=== PATIENT | female | born 1935 | race Caucasian/White ===

== ENCOUNTER → 2016-08-06 | Outpatient (CLI) | payer MEDICARE ==
[~2016-08-06] MED LIST: ARMO30TA PO; DILT180C56 PO; FLEC100T PO; VALT1TAB PO; XARE20TA PO
--- NOTE | 2016-09-03 10:56 | RSPPFT ---
DATE OF PROCEDURE: 08/06/16 COMMENTS: Spirometry with FEV1 of 1.7 at 117% of predicted, FVC of 2.1 at 93%, FEF 25-75 at 101% of predicted. Post-bronchodilator study demonstrated improvements in the FEV1 and FEF 25-75. Lung volumes demonstrated a raised RV/TLC ratio indicating hyperinflation and air trapping. Diffusion capacity is normal. Flow volume loops appear unremarkable. IMPRESSION: 1. Essentially normal pulmonary function study. 2. Significant response to use of bronchodilator indicating reactive airways. 3. Normal diffusion capacity.
== END ==
LOC: HRSP 10:40
DX: R05 Cough (principal); R06.00 Dyspnea, unspecified; R06.2 Wheezing; I48.91 Unspecified atrial fibrillation
CPT/HCPCS: 71250; 94060; 94726; 94729

== ENCOUNTER → 2016-08-06 | Outpatient (CLI) | payer MEDICARE ==
--- NOTE | 2016-08-06 14:14 | RADRPT ---
EXAM DATE/TIME: 08/06/2016 13:50 [facility] COMPARISON: No previous studies available for comparison. INDICATIONS : Coughing. RADIATION DOSE: 5.22 CTDIvol (mGy) MEDICAL HISTORY : A-fib SURGICAL HISTORY : Ablation. ENCOUNTER: Initial ACUITY: 1 day PAIN SCALE: 3/10 LOCATION: chest TECHNIQUE: Volumetric scanning of the chest was performed. Using automated exposure control and adjustment of t he mA and/or kV according to patient size, radiation dose was kept as low as reasonably achievable to obtain optimal diagnostic quality images. FINDINGS: LUNGS: There is no consolidation or pneumothorax. No concerning pulmonary nodule is visualized. No acute pu lmonary infiltrates. PLEURAE: There is no pleural thickening or pleural effusion. MEDIASTINUM: The heart and great vessels demonstrate no acute abnormality. There is no mediastinal or hilar lymph adenopathy. Atherosclerotic changes in the aorta. Coronary calcifications. AXILLAE: Within normal limits. No lymphadenopathy. MUSCULOSKELETAL: Within normal limits for patient age. MISCELLANEOUS: The visualized upper abdominal organs demonstrate no acute abnormality. Bilateral breast implants are in place. CONCLUSION: No acute intrathoracic disease. Kanu Sandoval MD on August 06, 2016 at 14:11 Board Certified Radiologist. This report was verified electronically.
== END ==
LOC: HRAD 13:03
DX: R05 Cough (principal); R06.00 Dyspnea, unspecified; R06.2 Wheezing; I48.91 Unspecified atrial fibrillation
CPT/HCPCS: 71250

== ENCOUNTER 2016-08-17 16:18 | Day surgery (SDC) | payer MEDICARE ==
[~2016-08-17 16:18] MED LIST changes: -ARMO30TA PO; -DILT180C56 PO; -FLEC100T PO; +PROPOFOL 200 MG/20 ML AMP IV ONE; -VALT1TAB PO; -XARE20TA PO
[2016-08-17] MEDS ORDERED: SODIUM CHLORID 0.9% 500 ML IV SCH (16:45)
[2016-08-17] MEDS ORDERED: METOPROLOL TARTRATE 25 MG TAB PO PRN (16:45)
[2016-08-17] MEDS ORDERED: INSULIN HUMAN REGULAR 1,000 UNITS/10 ML VIAL SQ PRN (16:45)
[2016-08-17] MEDS ORDERED: LACTATED RINGER'S 1000 ML IV SCH (16:45)
[2016-08-17] MEDS ORDERED: MIDAZOLAM HCL 2 MG/2 ML VIAL ONE (17:47)
[2016-08-17] MEDS ORDERED: ARMO30TA PO (17:57)
[2016-08-17] MEDS ORDERED: FLEC100T PO (17:57)
[2016-08-17] MEDS ORDERED: DILT180C56 PO (17:57)
[2016-08-17] MEDS ORDERED: XARE20TA PO (17:57)
[2016-08-17] MEDS ORDERED: VALT1TAB PO (17:57)
--- NOTE | 2016-08-17 19:43 | MA ---
cc: ALYSSA FREY M.D., HANSCY M.D. DATE 08/17/2016 CARDIOVERSION Mrs. Pierre is an 80-year-old female, atrial fibrillation, previous ablation, left atrial tachycardia on flecainide. Heart rate still high for the past week or two, admitted for cardioversion. The risks, the nature and the benefit of the procedure are clearly stated to her and her . Risks include cardiac arrest, need for pacing support and even . The patient understood and agreed to proceed. PROCEDURE After written informed consent was obtained, the patient was brought to the where the patient was evaluated by anesthesiologist. Anterolateral pads were placed. The patient received a 200 sync biphasic joule that converted her into sinus rhythm. She was observed. Heart rate in the 90s-80s. No incident to report. The patient tolerated the procedure. CONCLUSION Successful cardioversion. COMMENT AND RECOMMENDATIONS The patient going to be discharged home. Will be observed. I will see the patient in my office in two weeks. Serge Engle MD HS/KK /6:00 PM /7:35 PM
--- NOTE | 2016-08-18 18:41 | EKG ---
Date Performed: 08/17/2016 Time Performed: 17:49:56 PTAGE: 80 years EKG: Sinus rhythm Poor R wave progression - probable normal variant Borderline ECG PREVIOUS TRACING : 08/17/2016 16.58 DOCTOR: Jaydon Bills Interpretating Date/Time 08/18/2016 18:38:17
--- NOTE | 2016-08-18 18:43 | EKG ---
Date Performed: 08/17/2016 Time Performed: 16:58:02 PTAGE: 80 years EKG: Atrial flutter Poor R wave progression - probable normal variant Abnormal ECG NO PREVIOUS TRACING DOCTOR: Jaydon Bills Interpretating Date/Time 08/18/2016 18:38:45
== END 2016-08-17 18:36 | disposition home or self-care (01) ==
LOC: HDOC 16:18 → HDIC 16:19 → HDOC 18:36
PROVIDERS: ATTEND Internal Medicine Interventional Cardiology
DX: I48.91 Unspecified atrial fibrillation (principal); R94.31 Abnormal electrocardiogram [ECG] [EKG]
CPT/HCPCS: 92960; 93005; J2250

== ENCOUNTER 2017-07-13 14:50 | Inpatient (IN) | payer MEDICARE ==
[2017-07-13] VITALS (12 sets, daily range): BP systolic 137–196; BP diastolic 82–113; PULSE 91–141; RESP 15–20; TEMP 97.8–98.5; O2SAT 97–99
[~2017-07-13] VITALS: Ht 154.9 cm; Wt 56.5 kg
[~2017-07-13 14:50] MED LIST changes: +ARMO30TA PO; +BACT800T5 PO; +DILT180C56 PO; +FLEC100T PO; -PROPOFOL 200 MG/20 ML AMP IV ONE; +VALT1TAB PO; +XARE20TA PO
[2017-07-13] MEDS ORDERED: DILTIAZEM INJ 125 MG in SODIUM CHLORIDE 0.9% INJ 100 ML IV PRN ×3 (15:45→19:00)
[2017-07-13] MEDS ORDERED: DILTIAZEM HCL 25 MG/5 ML VIAL IV PUSH ONE (15:45)
[2017-07-13] MEDS ORDERED: SODIUM CHLORIDE 0.9% FLUSH 10 ML FLUSH IVF PRN (15:45)
[2017-07-13] MEDS: DILTIAZEM DRIP INJ PREMIX 125 ML IV PRN ×2 (16:33→17:40)
--- NOTE | 2017-07-13 16:38 | RADRPT ---
EXAM DATE/TIME: 07/13/2017 15:44 [facility] COMPARISON: No previous studies available for comparison. INDICATIONS : Cardiac issues MEDICAL HISTORY : atrial fibrillation SURGICAL HISTORY : ablasion, cardiac conversion x 2 ENCOUNTER: Initial ACUITY: 1 day PAIN SCORE: 0/10 LOCATION: Bilateral cranial FINDINGS: A single view of the chest demonstrates the lungs to be symmetrically aerated without evidence of mas s, infiltrate or effusion. The cardiomediastinal contours are unremarkable for portable technique. Osseous structures are intact. CONCLUSION: 1. No acute cardiopulmonary disease. Jameel Pedroza MD on July 13, 2017 at 16:35 Board Certified Radiologist. This report was verified electronically.
[2017-07-13 16:59] LABS: AUTOMATED NEUTROPHIL # 4.4 TH/MM3 (1.8-7.7); BASOPHIL % 0.7 % (0.0-2.0); EOSINOPHIL # 0.1 TH/MM3 (0-0.4); EOSINOPHIL % 1.3 % (0.0-4.0); HEMATOCRIT 41.8 % (35.0-46.0); HEMOGLOBIN 14.5 GM/DL (11.6-15.3); LYMPH % 26.1 % (9.0-44.0); LYMPHOCYTE # 1.8 TH/MM3 (1.0-4.8); MEAN CELL VOLUME 91.4 FL (80.0-100.0); MEAN CORPUSCULAR HEMOGLOBIN 31.7 PG (27.0-34.0); MEAN CORPUSCULAR HGB CONC 34.6 % (32.0-36.0); MEAN PLATELET VOLUME 9.5 FL (7.0-11.0); MONO % 9.7 % (0.0-8.0); MONOCYTE # 0.7 TH/MM3 (0-0.9); NEUT % 62.2 % (16.0-70.0); PLATELET COUNT 215 TH/MM3 (150-450); RED BLOOD COUNT 4.57 MIL/MM3 (4.00-5.30); RED CELL DISTRIBUTION WIDTH 14.2 % (11.6-17.2); WHITE BLOOD COUNT 7.1 TH/MM3 (4.0-11.0)
[2017-07-13 17:08] LABS: PROTHROMBIN TIME - PATIENT 10.2 SEC (9.8-11.6)
[2017-07-13 17:18] LABS: BICARBONATE 25.4 MEQ/L (21.0-32.0); BLOOD UREA NITROGEN 13 MG/DL (7-18); CALCIUM 9.7 MG/DL (8.5-10.1); CHLORIDE 103 MEQ/L (98-107); CREATININE 0.76 MG/DL (0.50-1.00); GLOMERULAR FILTRATION RATE 73 ML/MIN (>89); GLUCOSE,RANDOM 82 MG/DL (74-106); MAGNESIUM 2.3 MG/DL (1.5-2.5); SODIUM (NA) 137 MEQ/L (136-145); TROPONIN I LESS THAN 0.02 NG/ML (0.02-0.05)
--- NOTE | 2017-07-13 17:20 | EKG ---
Date Performed: 07/13/2017 Time Performed: 15:15:58 PTAGE: 81 years EKG: ATRIAL FLUTTER/TACHYCARDIA WITH RAPID VENTRICULAR RESPONSE MINIMAL ST DEPRESSION ABNORMAL R HYTHM ECG Compared to prior electrocardiogram, atrial flutter is now present PREVIOUS TRACING : 08/17/2016 17.49 DOCTOR: Marc Taylor Interpretating Date/Time 07/13/2017 17:18:53
--- NOTE | 2017-07-13 17:35 | PD ---
HPI Chief Complaint: Abnormal Results Time Seen by Provider: 15:20 Travel History International Travel<30 days: No Contact w/Intl Traveler<30days: No Traveled to known affect area: No History of Present Illness HPI 81-year-old female came to the emergency room with history of palpitations, lightheadedness since yesterday at around 5 PM. Patient has history of A. fib. She realizes that it is her atrial fibrillation. 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 Engle who has done cardiac ablation for her in the past. He did an EKG in his office that showed A. fib with RVR. He has asked the patient come to the emergency room and he will try to do an ablation again. Patient denies any chest pain. Her heart rate was in 120s when she arrived. She was awake and answering questions appropriately. Blood pressure was stable. Patient is on Xarelto for blood thinner. She is also on flecainide at home. She drinks 2 glasses of wine every day and drank one last night as well. PFSH Past Medical History Narrative Medical List of her past medical, surgical, social and family history is reviewed from the nursing note. Atrial Fibrillation: Yes Diminished Hearing: No Hypertension: Yes Thyroid Disease: Yes ?: Not Past Surgical History Section: Yes (x3) Cholecystectomy: Yes Other Surgery: Yes (ablasion, BREAST IMPLANTS) Social History Alcohol Use: Yes (wine daily ) Tobacco Use: No Substance Use: No Allergies-Medications (Allergen,Severity, Reaction): Coded Allergies: acetaminophen (Verified Allergy, Unknown, 07/16/17) albuterol (Verified Allergy, Unknown, 07/16/17) oxycodone (Verified Allergy, Unknown, 07/16/17) Comments List of her allergies reviewed from the nursing note. Reported Meds & Prescriptions Reported Meds & Active Scripts Active Reported Valtrex (Valacyclovir HCl) 1 Gm Tab 1,000 Mg PO DAILY Thomson Thyroid (Thyroid) 30 Mg Tab 45 Mg PO DAILY Xarelto (Rivaroxaban) 20 Mg Tab 20 Mg PO DAILY Diltiazem CD 24 HR 180 Mg Caper 180 Mg PO DAILY Narrative Medication List of her home medications reviewed from the nursing note. Review of Systems Except as stated in HPI: all other systems reviewed are Neg Cardiovascular: Positive: Palpitations Physical Exam Narrative GENERAL: Awake, alert, anxious SKIN: Focused skin assessment warm/dry. HEAD: Atraumatic. Normocephalic. EYES: Pupils equal and round. No scleral icterus. No injection or drainage. ENT: No nasal bleeding or discharge. Mucous membranes pink and moist. NECK: Trachea midline. No JVD. CARDIOVASCULAR: Irregularly irregular rhythm, tachycardic. No murmur appreciated. RESPIRATORY: No accessory muscle use. Clear to auscultation. Breath sounds equal bilaterally. GASTROINTESTINAL: Abdomen soft, non-tender, nondistended. Hepatic and splenic margins not palpable. MUSCULOSKELETAL: No obvious deformities. No clubbing. No cyanosis. No edema. NEUROLOGICAL: Awake and alert. No obvious cranial nerve deficits. Motor grossly within normal limits. Normal speech. PSYCHIATRIC: Appropriate mood and affect; insight and judgment normal. Data Data Last Documented VS Orders Orders Electrocardiogram (07/13/17 ) Basic Metabolic Panel (Bmp) (07/13/17 15:31) Ckmb (Isoenzyme) Profile (07/13/17 15:31) Complete Blood Count With Diff (07/13/17 15:31) Magnesium (Mg) (07/13/17 15:31) Prothrombin Time / Inr (Pt) (07/13/17 15:31) Troponin I (07/13/17 15:31) Chest, Single Ap (07/13/17 15:31) Ecg Monitoring (07/13/17 15:31) Bilateral Bp Monitoring (07/13/17 15:31) Iv Access Insert/Monitor (07/13/17 15:31) Oximetry (07/13/17 15:31) Oxygen Administration (07/13/17 15:31) Sodium Chloride 0.9% Flush (Ns Flush) (07/13/17 15:45) Vital Signs (Adult) Q15MX4,Q4H (07/13/17 15:33) [employer] / Telemetry LISA.Q8H (07/13/17 15:33) Cardiac Rhythm LISA.Q8H (07/13/17 15:33) Notify Dr: Other (07/13/17 15:33) Diltiazem Inj (Cardizem Inj) (07/13/17 15:45) Diltiazem Inj (Cardizem Inj) (07/13/17 15:45) Diltiazem Drip Inj Premix (Cardizem Drip (07/13/17 15:45) Admit Order (Ed Use Only) (07/13/17 17:35) Labs Laboratory Tests Test 07/13/17 15:15 White Blood Count 7.1 TH/MM3 Red Blood Count 4.57 MIL/MM3 Hemoglobin 14.5 GM/DL Hematocrit 41.8 % Mean Corpuscular Volume 91.4 FL Mean Corpuscular Hemoglobin 31.7 PG Mean Corpuscular Hemoglobin Concent 34.6 % Red Cell Distribution Width 14.2 % Platelet Count 215 TH/MM3 Mean Platelet Volume 9.5 FL Neutrophils (%) (Auto) 62.2 % Lymphocytes (%) (Auto) 26.1 % Monocytes (%) (Auto) 9.7 % Eosinophils (%) (Auto) 1.3 % Basophils (%) (Auto) 0.7 % Neutrophils # (Auto) 4.4 TH/MM3 Lymphocytes # (Auto) 1.8 TH/MM3 Monocytes # (Auto) 0.7 TH/MM3 Eosinophils # (Auto) 0.1 TH/MM3 Basophils # (Auto) 0.0 TH/MM3 CBC Comment DIFF FINAL Differential Comment Prothrombin Time 10.2 SEC Prothromb Time International Ratio 1.0 RATIO Blood Urea Nitrogen 13 MG/DL Creatinine 0.76 MG/DL Random Glucose 82 MG/DL Calcium Level 9.7 MG/DL Magnesium Level 2.3 MG/DL Sodium Level 137 MEQ/L Potassium Level 3.8 MEQ/L Chloride Level 103 MEQ/L Carbon Dioxide Level 25.4 MEQ/L Anion Gap 9 MEQ/L Estimat Glomerular Filtration Rate 73 ML/MIN Total Creatine Kinase 93 U/L Troponin I LESS THAN 0.02 NG/ML MDM Medical Decision Making Medical Screen Exam Complete: Yes Emergency Medical Condition: Yes Medical Record Reviewed: Yes Interpretation(s) Twelve-lead EKG was reviewed by me. Atrial fibrillation, normal axis, RVR. Heart rate of 123 bpm. Differential Diagnosis A. fib with RVR, ACS, CHF Narrative Course 5:33 PM patient was given a bolus of Cardizem and started on Cardizem drip. Blood test results back and within normal limits. I discussed with Dr. Engle once the patient to be admitted medically and he will do the ablation probably tomorrow. Currently that her heart rate is between 90s-1 teens. The Cardizem drip will be titrated up a little. Critical Care Narrative Aggregate critical care time was 45 minutes. Time to perform other separately billable procedures was not included in the critical care time. My time did not include minutes spent treating any other patients simultaneously or on activities that did not directly contribute to the patient's treatment. The services I provided to this patient were to treat and/or prevent clinically significant deterioration that could result in: A. fib with RVR, Cardizem bolus and drip I provided critical care services requiring my management, as noted below: Chart data review, documentation time, medication orders and management, vital sign assessments/reviewing monitor data, ordering and reviewing lab tests, ordering and interpreting/reviewing x-rays and diagnostic studies, care of the patient and discussion of the patient with the admitting physicians. Procedures EKG Prior to Arrival: No Physician Communication Physician Communication Dr. Engle Diagnosis Primary Impression: Atrial fibrillation with RVR Admitting Information Admitting Physician Requests: Admit Scripts Amiodarone (Amiodarone) 200 Mg Tab 200 MG PO DAILY, #30 TAB Prov: Pete Davenport MD R1 07/16/17 Aj Cavazos MD Jul 13, 2017 17:35
--- NOTE | 2017-07-13 17:39 | HHI.HP ---
[facility] Service Family Medicine Primary Care Physician Sam Love MD Admission Diagnosis A. fib with RVR Diagnoses: International Travel<30 Days: No Contact w/Intl Traveler<30days: No Known Affected Area: No History of Present Illness 81 y/o F, pmhx of Afibb and ablation 1 year ago, presents after palpitations started yesterday afternoon. Her palpitations have been the worst in the last 24hours, but she started experiencing symptoms a month ago. She can feel her heart beating fast like it is beating out of her chest, nonstop for the last 24hours. Before yesterday, the palpitations would occur approximately 1x/day for 1.5hrs when she laid down to rest either in the afternoon or evening. She also felt excessively fatigued; she has been laying down frequently during the day and has had a lack of energy. She takes her HR with a cuff (and with an shelton on her iphone) when she feels the sx and she has been in the 130s at home. Pt denies any CP. She does feel some SOB but attributes this to activity. Denies any recent sickness; cold or flu. She has been vaccinated. Denies any N/V. Denies any diarrhea, she has had constipation recently but +BM this week. New Years Maryam, 30 days ago she went to the [facility] ED for constant palpitations x 24hrs and HR 130s and had a cardioversion (medication failed, and paddles used ) and told her to f/u with . The following month she continued to have sx.This felt similar to her episode 1 year ago that led to an ablation. She has had 4 episodes of palpitations since her last ablation, but these episodes of tachy would go away in 30 minutes. 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 said to come straight here and the plan is for ablation tomorrow. Review of Systems Constitutional: DENIES: Fever, Chills Endocrine: DENIES: Polydipsia, Polyuria Eyes: DENIES: Eye inflammation, Eye pain Ears, nose, mouth, throat: DENIES: Hearing loss, Vertigo Respiratory: DENIES: Hemoptysis, Sputum production Cardiovascular: DENIES: Lower Extremity Edema Gastrointestinal: DENIES: Black stools, Bloody stools Genitourinary: DENIES: Sexual dysfunction, Urinary frequency Musculoskeletal: DENIES: Muscle aches Integumentary: DENIES: Rash Hematologic/lymphatic: DENIES: Lymphadenopathy Immunologic/allergic: DENIES: Urticaria Neurologic: DENIES: Paresthesias Psychiatric: DENIES: Depression Past Family Social History Past Medical History Afibb with RVR, Ablation 1 year ago HTN Borderline DM Past Surgical History cornea transplant C/S x 3 Cholecystectomy Wrist and ankle repairs Reported Medications Cardizem 240mg ER Flec 100mg Xarelto 20mg Allergies: Coded Allergies: acetaminophen (Verified Allergy, Unknown, 07/13/17) albuterol (Verified Allergy, Unknown, 07/13/17) oxycodone (Verified Allergy, Unknown, 07/13/17) Family History Father: of heart disease at 58 Mother: of heart disease at 65 Social History live in home together, live in [facility] does not smoke, drink wine (2 glasses last night), no drugs Physical Exam Vital Signs Vital Signs Date Time Temp Pulse Resp B/P (MAP) Pulse Ox O2 Delivery O2 Flow Rate FiO2 07/13/17 17:31 98 15 160/84 (109) 99 Room Air 07/13/17 17:13 99 Room Air 07/13/17 17:13 99 15 146/87 (106) 98 Room Air 139/86 (103) 07/13/17 17:13 99 15 146/87 (106) 99 Room Air 07/13/17 16:33 101 146/87 07/13/17 15:18 141 17 139/82 (101) 99 Room Air 07/13/17 14:51 98.5 130 20 177/108 (131) 99 Room Air Physical Exam GENERAL: This is a well-nourished, well-developed patient, in no apparent distress. SKIN: No rashes, ecchymoses or lesions. Cool and dry. HEAD: Atraumatic. Normocephalic. No temporal or scalp tenderness. EYES: Pupils equal round and reactive. Extraocular motions intact. No scleral icterus. No injection or drainage. ENT: Nose without bleeding, purulent drainage or septal hematoma. Throat without erythema, tonsillar hypertrophy or exudate. Uvula midline. Airway patent. NECK: Trachea midline. No JVD or lymphadenopathy. Supple, nontender, no meningeal signs. CARDIOVASCULAR: Regular rate and rhythm without murmurs, gallops, or rubs. RESPIRATORY: Clear to auscultation. Breath sounds equal bilaterally. No wheezes , rales, or rhonchi. GASTROINTESTINAL: Abdomen soft, non-tender, nondistended. No hepato-splenomegaly , or palpable masses. No guarding. MUSCULOSKELETAL: Extremities without clubbing, cyanosis, or edema. No joint tenderness, effusion, or edema noted. No calf tenderness. Negative Homans sign bilaterally. NEUROLOGICAL: Awake and alert. Cranial nerves II through XII intact. Motor and sensory grossly within normal limits. Five out of 5 muscle strength in all muscle groups. Normal speech. Laboratory Laboratory Tests Test 07/13/17 15:15 White Blood Count 7.1 Red Blood Count 4.57 Hemoglobin 14.5 Hematocrit 41.8 Mean Corpuscular Volume 91.4 Mean Corpuscular Hemoglobin 31.7 Mean Corpuscular Hemoglobin Concent 34.6 Red Cell Distribution Width 14.2 Platelet Count 215 Mean Platelet Volume 9.5 Neutrophils (%) (Auto) 62.2 Lymphocytes (%) (Auto) 26.1 Monocytes (%) (Auto) 9.7 Eosinophils (%) (Auto) 1.3 Basophils (%) (Auto) 0.7 Neutrophils # (Auto) 4.4 Lymphocytes # (Auto) 1.8 Monocytes # (Auto) 0.7 Eosinophils # (Auto) 0.1 Basophils # (Auto) 0.0 CBC Comment DIFF FINAL Differential Comment Prothrombin Time 10.2 Prothromb Time International Ratio 1.0 Blood Urea Nitrogen 13 Creatinine 0.76 Random Glucose 82 Calcium Level 9.7 Magnesium Level 2.3 Sodium Level 137 Potassium Level 3.8 Chloride Level 103 Carbon Dioxide Level 25.4 Anion Gap 9 Estimat Glomerular Filtration Rate 73 Total Creatine Kinase 93 Troponin I LESS THAN 0.02 Result Diagram: 07/13/17 1515 07/13/17 1515 Septic Shock Reassessment Septic shock perfusion: reassessment completed Caprini VTE Risk Assessment Caprini VTE Risk Assessment: No/Low Risk (score <= 1) Caprini Risk Assessment Model Point Value = 1 Point Value = 2 Point Value = 3 Point Value = 5 Age 41-60 Minor surgery BMI > 25 kg/m2 Swollen legs Varicose veins or History of unexplained or recurrent spontaneous Oral contraceptives or hormone replacement Sepsis (< 1 month) Serious lung disease, including pneumonia (< 1 month) Abnormal pulmonary function Acute myocardial infarction Congestive heart failure (< 1 month) History of inflammatory bowel disease Medical patient at bed rest Age 61-74 Arthroscopic surgery Major open surgery (> 45 min) Laparoscopic surgery (> 45 min) Malignancy Confined to bed (> 72 hours) Immobilizing plaster cast Central venous access Age >= 75 History of VTE Family history of VTE Factor V Leiden Prothrombin [id number] Lupus anticoagulant Anticardiolipin antibodies Elevated serum homocysteine Heparin-induced thrombocytopenia Other congenital or acquired thrombophilia Stroke (< 1 month) Elective arthroplasty Hip, pelvis, or leg fracture Acute spinal cord injury (< 1 month) Prophylaxis Regimen Total Risk Factor Score Risk Level Prophylaxis Regimen 0-1 Low Early ambulation 2 Moderate Order ONE of the following: *Sequential Compression Device (SCD) *Heparin 5000 units SQ BID 3-4 Higher Order ONE of the following medications: *Heparin 5000 units SQ TID *Enoxaparin/Lovenox 40 mg SQ daily (WT < 150 kg, CrCl > 30 mL/min) *Enoxaparin/Lovenox 30 mg SQ daily (WT < 150 kg, CrCl > 10-29 mL/min) *Enoxaparin/Lovenox 30 mg SQ BID (WT < 150 kg, CrCl > 30 mL/min) AND/OR *Sequential Compression Device (SCD) 5 or more Highest Order ONE of the following medications: *Heparin 5000 units SQ TID (Preferred with Epidurals) *Enoxaparin/Lovenox 40 mg SQ daily (WT < 150 kg, CrCl > 30 mL/min) *Enoxaparin/Lovenox 30 mg SQ daily (WT < 150 kg, CrCl > 10-29 mL/min) *Enoxaparin/Lovenox 30 mg SQ BID (WT < 150 kg, CrCl > 30 mL/min) AND *Sequential Compression Device (SCD) Assessment and Plan Assessment and Plan 81-year-old female, history of chronic A. fib and previous ablation and cardioversions, presents with palpitations and tachycardia. Code Status Full code Discussed Condition With Dr. Padilla Problem List: (1) Atrial fibrillation with RVR ICD Codes: I48.91 - Unspecified atrial fibrillation Status: Acute Plan: Chronic A. fib 1 year, may be exacerbated by alcohol, thyroid, CHF, or other Rate control with diltiazem drip Telemetry CIC Follow-up troponins and EKGs Follow-up BMP Follow-up magnesium Follow-up echo Follow up TSH/free T4 Plan for ablation with Dr. Valenzuela tomorrow (2) Hypertension ICD Codes: I10 - Essential (primary) hypertension Status: Chronic Plan: Blood pressure is well-controlled at home per patient f/u BPs Rate control and blood pressure control with diltiazem drip, titrated as needed Caution for hypotension (3) Hypothyroidism ICD Codes: E03.9 - Hypothyroidism, unspecified Status: Acute Plan: Patient on [place] thyroid 45 mg daily at home Hold for now Follow up TSH, free T4 in a.m. (4) Prediabetes ICD Codes: R73.03 - Prediabetes Status: Chronic Plan: Follow-up fingersticks Low-dose sliding scale (5) FEN/PPX Status: Chronic Plan: Fluids: By mouth fluids until midnight Electrolytes: BMP within normal limits, follow-up tomorrow and replete as needed Nutrition: By mouth until midnight GI prophylaxis: Not indicated DVT prophylaxis: July Claire MD R2 Jul 13, 2017 17:39
[2017-07-13] MEDS ORDERED: SODIUM CHLORIDE 0.9% FLUSH 10 ML FLUSH IV FLUSH PRN (19:00)
[2017-07-13] MEDS ORDERED: DEXTROSE 50% IN WATER 50 ML VIAL(D50) IV PUSH PRN (19:15)
[2017-07-13] MEDS ORDERED: GLUCAGON 1 MG/ML VIAL OTHER PRN (19:15)
[2017-07-13] MEDS: SODIUM CHLORIDE 0.9% FLUSH 10 ML FLUSH IV FLUSH SCH (21:00)
[2017-07-13] MEDS: INSULIN ASPART SUPPLEMENTAL SCALE SQ SCH (21:00)
--- NOTE | 2017-07-13 21:44 | EKG ---
Date Performed: 07/13/2017 Time Performed: 21:14:02 PTAGE: 81 years EKG: atrial flutter Possible anterior infarct - age undetermined Inferior/lateral ST-T changes a re nonspecific Abnormal ECG Compared to prior electrocardiogram, rate has decreased PREVIOUS TRACING : 07/13/2017 15.15 DOCTOR: Marc Taylor Interpretating Date/Time 07/13/2017 21:43:09
[2017-07-13 21:45] LABS: MAGNESIUM 2.2 MG/DL (1.5-2.5)
[2017-07-13 21:53] LABS: FREE T4 1.02 NG/DL (0.76-1.46); TROPONIN I LESS THAN 0.02 NG/ML (0.02-0.05)
[2017-07-13] MEDS: TEMAZEPAM 15 MG CAP PO PRN (23:43)
[2017-07-14] VITALS (27 sets, daily range): BP systolic 104–144; BP diastolic 72–88; PULSE 84–131; RESP 18–20; TEMP 97.6–98.1; O2SAT 96–98
[2017-07-14 03:35] LABS: MEAN CELL VOLUME 92.1 FL (80.0-100.0); MEAN CORPUSCULAR HEMOGLOBIN 30.7 PG (27.0-34.0); MEAN CORPUSCULAR HGB CONC 33.4 % (32.0-36.0); MEAN PLATELET VOLUME 8.2 FL (7.0-11.0); PLATELET COUNT 218 TH/MM3 (150-450); RED BLOOD COUNT 4.56 MIL/MM3 (4.00-5.30); RED CELL DISTRIBUTION WIDTH 14.5 % (11.6-17.2); WHITE BLOOD COUNT 6.3 TH/MM3 (4.0-11.0)
[2017-07-14 03:55] LABS: BICARBONATE 27.9 MEQ/L (21.0-32.0); CALCIUM 8.6 MG/DL (8.5-10.1); CREATININE 0.74 MG/DL (0.50-1.00)
[2017-07-14] MEDS: DILTIAZEM DRIP INJ PREMIX 125 ML IV PRN (05:30)
--- NOTE | 2017-07-14 07:21 | HHI.FPPN ---
Subjective Remarks Khushbu Pierre is an 81yo lady with h/o chronic A fib s/p ablation one year ago, admitted for anticipated ablation by Dr. Engle after developing 1-2 day history of worsening palpitations. For further details, please see resident H&P. This morning, she reports she slept well overnight. She denies palpitations, SOB , or chest pain this morning, ROS: Chest pain resolved, palpitations resolved. No SOB, no nausea. All other systems reviewed as negative. PMH/PSxH/SocHx/FamHx: Per resident H&P. Significant for: A fib, s/p ablation 1 year ago and cardioversion ~1 month ago. HTN, DM II. H/O x 3, cornea transplant, cholecystectomy, wrist/ankle repair. Father and mother both of heart disease. Lives with partner locally. No tobacco. 2 glasses of wine/night. No recreational drugs. Objective Vitals Vital Signs Date Time Temp Pulse Resp B/P (MAP) Pulse Ox O2 Delivery O2 Flow Rate FiO2 07/14/17 06:00 94 07/14/17 05:30 88 07/14/17 05:00 84 07/14/17 04:00 92 07/14/17 03:00 90 07/14/17 03:00 97.8 101 130/88 (102) 98 07/14/17 02:00 90 07/14/17 01:00 96 07/14/17 00:00 100 07/13/17 23:00 98.1 97 152/82 (105) 97 07/13/17 23:00 102 07/13/17 22:00 94 07/13/17 21:00 96 07/13/17 20:00 114 07/13/17 19:09 91 07/13/17 19:00 97.8 96 137/87 (104) 98 07/13/17 18:52 97.9 101 20 182/108 (132) 98 07/13/17 18:21 100 15 196/113 (140) 99 07/13/17 17:40 100 160/82 07/13/17 17:31 98 15 160/84 (109) 99 Room Air 07/13/17 17:13 99 Room Air 07/13/17 17:13 99 15 146/87 (106) 98 Room Air 139/86 (103) 07/13/17 17:13 99 15 146/87 (106) 99 Room Air 07/13/17 16:33 101 146/87 07/13/17 15:18 141 17 139/82 (101) 99 Room Air 07/13/17 14:51 98.5 130 20 177/108 (131) 99 Room Air I/O 07/13/17 07/13/17 07/13/17 07/14/17 07/14/17 07/14/17 07:00 15:00 23:00 07:00 15:00 23:00 Intake Total 591 ml Output Total 1000 ml Balance -409 ml Intake Oral 480 ml IV Total 111 ml Output Urine Total 1000 ml Result Diagram: 07/14/17 03207/14/17 032 Objective Remarks GENERAL: in NAD, no resp distress, nontoxic. HEENT: NCAT, no scleral icterus, no conjunctival injection. MMM. NECK: Supple, no meningeal signs. No obvious JVD. CV: irregularly irregular. No murmurs. CHEST/PULM: CTAB, no crackles, no wheezes. ABD/GI: +BS, soft, nontender, nondistended. EXT: 2+ DP pulses. No edema. No calf tenderness. NEURO: Awake, alert. Normal muscle tone. SKIN: No rashes, no jaundice. PSYCH: Mood and affect are appropriate. Speech fluent. Does not appear to respond to internal stimuli. A/P Assessment and Plan 81-year-old female, history of chronic A. fib and previous ablation and cardioversions, presents with palpitations and tachycardia. Attending Attestation Patient seen, examined, and discussed with resident team. The patient has been seen and examined. The chart and all resident notes have been reviewed. I agree that inpatient care is appropriate and that a two midnight stay is expected for the reasons documented in the resident history and physical. I have discussed this with the resident and certify the resident s order for inpatient admission. Problem List: (1) Atrial fibrillation with RVR ICD Codes: I48.91 - Unspecified atrial fibrillation Status: Acute Plan: Patient with known chronic a fib. She has undergone ablation and cardioversion in the past. Admitted for anticipated ablation by Dr. Engle during this hospitalization. Continue rate control with diltiazem drip Telemetry - remains in A fib. Serial troponins are reassuring. TSH/Free T4 reassuring. Patient reports that ablation will be tomorrow. Will provide lovenox therapeutic dose at this time for anticoagulation. Pt will need to resume Xarelto after procedure. (2) Hypothyroidism ICD Codes: E03.9 - Hypothyroidism, unspecified Status: Chronic Plan: Patient on [place] thyroid 45 mg daily at home Will resume after procedure. (3) Prediabetes ICD Codes: R73.03 - Prediabetes Status: Chronic Plan: Follow-up bedside glucose Low-dose sliding scale (4) Hypertension ICD Codes: I10 - Essential (primary) hypertension Status: Chronic Plan: Blood pressure is well-controlled at home per patient Will continue to monitor. Rate control and blood pressure control with diltiazem drip, titrated as needed Caution for hypotension Problem Qualifiers (1) Hypothyroidism: Qualified Codes: E03.9 - Hypothyroidism, unspecified (2) Hypertension: Qualified Codes: I10 - Essential (primary) hypertension Shayy Padilla MD Jul 14, 2017 07:21
[2017-07-14] MEDS: INSULIN ASPART SUPPLEMENTAL SCALE SQ SCH ×4 (08:00→21:00)
[2017-07-14] MEDS: SODIUM CHLORIDE 0.9% FLUSH 10 ML FLUSH IV FLUSH SCH ×2 (08:19→21:00)
--- NOTE | 2017-07-14 08:34 | EKG ---
Date Performed: 07/14/2017 Time Performed: 03:23:58 PTAGE: 81 years EKG: Possible atrial flutter Inferior and anterior T wave changes are nonspecific Abnormal ECG N o significant change from prior electrocardiogram. PREVIOUS TRACING : 07/13/2017 21.14 DOCTOR: Marc Taylor Interpretating Date/Time 07/14/2017 08:32:40
[2017-07-14 09:28] LABS: AUTOMATED NEUTROPHIL # 2.6 TH/MM3 (1.8-7.7); BASOPHIL % 0.9 % (0.0-2.0); EOSINOPHIL # 0.1 TH/MM3 (0-0.4); EOSINOPHIL % 2.1 % (0.0-4.0); HEMATOCRIT 44.2 % (35.0-46.0); HEMOGLOBIN 14.9 GM/DL (11.6-15.3); LYMPH % 27.9 % (9.0-44.0); LYMPHOCYTE # 1.2 TH/MM3 (1.0-4.8); MEAN CELL VOLUME 92.9 FL (80.0-100.0); MEAN CORPUSCULAR HEMOGLOBIN 31.3 PG (27.0-34.0); MEAN CORPUSCULAR HGB CONC 33.7 % (32.0-36.0); MEAN PLATELET VOLUME 8.8 FL (7.0-11.0); MONO % 10.1 % (0.0-8.0); MONOCYTE # 0.4 TH/MM3 (0-0.9); PLATELET COUNT 216 TH/MM3 (150-450); RED BLOOD COUNT 4.76 MIL/MM3 (4.00-5.30); RED CELL DISTRIBUTION WIDTH 14.2 % (11.6-17.2); WHITE BLOOD COUNT 4.4 TH/MM3 (4.0-11.0)
[2017-07-14 09:40] LABS: ALBUMIN 3.7 GM/DL (3.4-5.0); AST (GOT) 14 U/L (15-37); BICARBONATE 26.9 MEQ/L (21.0-32.0); BLOOD UREA NITROGEN 12 MG/DL (7-18); CALCIUM 9.1 MG/DL (8.5-10.1); CHLORIDE 104 MEQ/L (98-107); CREATININE 0.68 MG/DL (0.50-1.00); GLOMERULAR FILTRATION RATE 83 ML/MIN (>89); GLUCOSE,RANDOM 93 MG/DL (74-106); SODIUM (NA) 138 MEQ/L (136-145)
[2017-07-14 09:42] LABS: ALT (GPT) 20 U/L (10-53)
[2017-07-14 09:44] LABS: ALKALINE PHOSPHATASE 76 U/L (45-117); TOTAL BILIRUBIN ADULT 0.9 MG/DL (0.2-1.0)
[2017-07-14] MEDS: valACYclovir HCL 500 MG TAB PO SCH (11:35)
[2017-07-14] MEDS: ENOXAPARIN SODIUM 60 MG/0.6 ML SYRINGE SQ SCH ×2 (11:35→22:57)
[2017-07-14] MEDS: THYROID 15 MG TAB PO SCH (12:45)
--- NOTE | 2017-07-14 17:12 | ECHRPT ---
Indication: Hypertensive heart disease with heart failure CONCLUSIONS The left ventricular systolic function is normal with an estimated ejection fraction in the range of 60-65%. Normal left ventricular size. Wall thickness is normal. The aortic root and proximal ascending aorta are not well visualized. Trace mitral valve regurgitation. No tricuspid regurgitation. BP: 130 / 88 HR: 101 Rhythm: MEASUREMENTS (Male / Female) Normal Values Technical Quality:Good 2D ECHO LV Diastolic Diameter PLAX 3.3 cm 4.2 - 5.9 / 3.9 - 5.3 cm LV Systolic Diameter PLAX 2.4 cm IVS Diastolic Thickness 1.0 cm 0.6 - 1.0 / 0.6 - 0.9 cm LVPW Diastolic Thickness 1.1 cm 0.6 - 1.0 / 0.6 - 0.9 cm LV Relative Wall Thickness 0.6 RV Internal Dim ED PLAX 2.4 cm M-MODE Aortic Root Diameter MM 2.5 cm LA Systolic Diameter MM 3.3 cm LA Ao Ratio MM 1.3 AV Cusp Separation MM 1.4 cm DOPPLER Mitral E Point Velocity 69.5 cm/s Mitral A Point Velocity 137.0 cm/s Mitral E to A Ratio 0.5 LV E' Lateral Velocity 7.4 cm/s Mitral E to LV E' Lateral Ratio 9.4 FINDINGS LEFT VENTRICLE The left ventricular systolic function is normal with an estimated ejection fraction in the range of 60-65%. Normal left ventricular size. Wall thickness is normal. RIGHT VENTRICLE Normal right ventricular size and systolic function. LEFT ATRIUM The left atrial size is normal. RIGHT ATRIUM The right atrial size is normal. ATRIAL SEPTUM Normal atrial septal thickness without atrial level shunting by limited color doppler interrogation. AORTA The aortic root and proximal ascending aorta are not well visualized. MITRAL VALVE Trace mitral valve regurgitation. Structurally normal mitral valve. AORTIC VALVE Trileaflet aortic valve. No aortic valve stenosis or regurgitation. TRICUSPID VALVE No tricuspid regurgitation. Structurally normal tricuspid valve. PULMONARY VALVE No pulmonary valve regurgitation or stenosis. VESSELS The inferior vena cava is normal in size. PERICARDIUM No pericardial effusion. Oumar Arteaga MD, FACC (Electronically Signed) Final Date:14 July 2017 17:10
[2017-07-14] MEDS: TEMAZEPAM 15 MG CAP PO PRN (22:57)
[2017-07-15] VITALS (17 sets, daily range): BP systolic 118–140; BP diastolic 71–101; PULSE 74–109; RESP 16–20; TEMP 97.3–98.6; O2SAT 96–99
[2017-07-15] MEDS: INSULIN ASPART SUPPLEMENTAL SCALE SQ SCH ×3 (08:00→21:55)
[2017-07-15] MEDS: valACYclovir HCL 500 MG TAB PO SCH (08:53)
[2017-07-15] MEDS: THYROID 15 MG TAB PO SCH (08:56)
[2017-07-15] MEDS: SODIUM CHLORIDE 0.9% FLUSH 10 ML FLUSH IV FLUSH SCH ×2 (08:57→21:00)
[2017-07-15 10:33] LABS: HEMATOCRIT 43.9 % (35.0-46.0); HEMOGLOBIN 14.6 GM/DL (11.6-15.3); MEAN CELL VOLUME 92.9 FL (80.0-100.0); MEAN CORPUSCULAR HGB CONC 33.4 % (32.0-36.0); MEAN PLATELET VOLUME 9.3 FL (7.0-11.0); PLATELET COUNT 237 TH/MM3 (150-450); RED BLOOD COUNT 4.73 MIL/MM3 (4.00-5.30); RED CELL DISTRIBUTION WIDTH 14.1 % (11.6-17.2)
[2017-07-15] MEDS: ENOXAPARIN SODIUM 60 MG/0.6 ML SYRINGE SQ SCH (11:00)
[2017-07-15 11:22] LABS: CALCIUM 9.5 MG/DL (8.5-10.1); CREATININE 0.78 MG/DL (0.50-1.00)
[2017-07-15] MEDS: DILTIAZEM DRIP INJ PREMIX 125 ML IV PRN (11:44)
[2017-07-15] MEDS ORDERED: ePHEDrine/NS 25 MG/5 ML SYRINGE IV ONE (12:00)
[2017-07-15] MEDS ORDERED: DEXAMETHASONE SOD PHOS 4 MG/ML VIAL IV ONE (12:00)
[2017-07-15] MEDS ORDERED: PHENYLEPHRINE HCL 10 MG/ML VIAL IV ONE (12:00)
[2017-07-15] MEDS ORDERED: NEOSTIGMINE 5 MG/5 ML SYRINGE IV PUSH ONE (12:00)
[2017-07-15] MEDS ORDERED: LIDOCAINE HCL 1% PF 5 ML SYRINGE OTHER ONE (12:00)
[2017-07-15] MEDS ORDERED: ROCURONIUM INJ 50 MG/5 ML SYRINGE IV PUSH ONE (12:00)
[2017-07-15] MEDS ORDERED: PHENYLEPH/NS 1000 MCG/10 ML SYR IV ONE (12:00)
[2017-07-15] MEDS ORDERED: PROPOFOL 200 MG/20 ML AMP IV ONE (12:00)
[2017-07-15] MEDS ORDERED: METOPROLOL TARTRATE 5 MG/5 ML VIAL IV ONE (12:00)
[2017-07-15] MEDS ORDERED: ONDANSETRON HCL 4 MG/2 ML VIAL IV ONE (12:00)
--- NOTE | 2017-07-15 14:08 | HHI.FPPN ---
Subjective Remarks Patient seen and examined this morning bedside. She has continued to feel intermittent vague palpitations in her chest. She denies any specific chest pain. Denies any shortness of breath. She is waiting for her procedure and has no complaints. No acute events overnight. No fever/chills. (July Walsh MD R2) Objective Vitals Vital Signs Date Time Temp Pulse Resp B/P (MAP) Pulse Ox O2 Delivery O2 Flow Rate FiO2 07/15/17 11:50 98.1 109 18 129/77 (94) 97 07/15/17 11:44 109 129/77 07/15/17 08:32 97.5 91 18 118/76 (90) 07/15/17 06:00 90 07/15/17 05:00 88 07/15/17 04:00 90 07/15/17 03:00 98.6 87 20 122/84 (97) 99 07/15/17 03:00 84 07/15/17 02:00 78 07/15/17 01:00 74 07/15/17 00:00 87 07/14/17 23:00 98.0 98 20 104/72 (83) 96 07/14/17 23:00 100 07/14/17 22:00 108 07/14/17 21:00 110 07/14/17 20:00 131 07/14/17 19:00 97.9 124 20 144/87 (106) 96 07/14/17 19:00 118 07/14/17 18:01 109 07/14/17 17:01 118 07/14/17 16:00 110 07/14/17 15:01 98.1 108 18 126/81 (96) 98 07/14/17 15:00 94 I/O 07/14/17 07/14/17 07/14/17 07/15/17 07/15/17 07/15/17 07:00 15:00 23:00 07:00 15:00 23:00 Intake Total 591 ml 0 ml 480 ml Output Total 1000 ml 700 ml 1000 ml Balance -409 ml -700 ml -520 ml Intake Oral 480 ml 0 ml 480 ml IV Total 111 ml Output Urine Total 1000 ml 700 ml 1000 ml # Voids 3 # Bowel Movements 0 2 (July Walsh MD R2) Result Diagram: 2/283007/15/17830 Objective Remarks GENERAL: in NAD, no resp distress, nontoxic. HEENT: NCAT, no scleral icterus, no conjunctival injection. MMM. NECK: Supple, no meningeal signs. No obvious JVD. CV: irregularly irregular. No murmurs. CHEST/PULM: CTAB, no crackles, no wheezes. ABD/GI: +BS, soft, nontender, nondistended. EXT: 2+ DP pulses. No edema. No calf tenderness. NEURO: Awake, alert. Normal muscle tone. SKIN: No rashes, no jaundice. PSYCH: Mood and affect are appropriate. Speech fluent. Does not appear to respond to internal stimuli. (July Walsh MD R2) A/P Assessment and Plan 81-year-old female, history of chronic A. fib and previous ablation and cardioversions, presents with palpitations and tachycardia. Scheduled for ablation today Discharge Planning Discharge pending recommendations of Dr. Engle (July Walsh MD R2) Attending Attestation Patient seen and examined, discussed with Dr. Walsh. I agree with assessment and management as documented and discussed with me. (Shayy Padilla MD) Problem List: (1) Atrial fibrillation with RVR ICD Codes: I48.91 - Unspecified atrial fibrillation Status: Acute Plan: Patient with known chronic a fib. She has undergone ablation and cardioversion in the past. Admitted for anticipated ablation by Dr. Engle today. Heart rate relatively controlled compared to admission, rate overnight was 80- 110 Continue rate control with diltiazem drip Telemetry - remains in A fib. Serial troponins are reassuring. TSH/Free T4 reassuring. Ablation is today Therapeutic Lovenox was held this morning in anticipation of procedure Plan to resume Xarelto postop tomorrow (2) Hypothyroidism ICD Codes: E03.9 - Hypothyroidism, unspecified Status: Chronic Plan: Patient on [place] thyroid 45 mg daily at home Will resume after procedure. (3) Prediabetes ICD Codes: R73.03 - Prediabetes Status: Chronic Plan: Follow-up bedside glucose Low-dose sliding scale (4) Hypertension ICD Codes: I10 - Essential (primary) hypertension Status: Chronic Plan: Blood pressure is well-controlled at home per patient Will continue to monitor. Rate control and blood pressure control with diltiazem drip, titrated as needed Caution for hypotension (5) FEN/PPX Status: Chronic Plan: Fluids: NPO for procedure Electrolytes: BMP within normal limits, follow-up tomorrow and replete as needed Nutrition: NPO for procedure GI prophylaxis: Not indicated DVT prophylaxis: SCDs, see plan for anticoag under Afib[facility] (July Walsh MD R2) Problem Qualifiers (1) Hypothyroidism: Qualified Codes: E03.9 - Hypothyroidism, unspecified (2) Hypertension: Qualified Codes: I10 - Essential (primary) hypertension July Walsh MD R2 Jul 15, 2017 14:08 Shayy Padilla MD Jul 15, 2017 14:55
[2017-07-15] MEDS ORDERED: HEPARIN-D5W 25,000 U/250 ML 250 ML ONE (15:44)
[2017-07-15] MEDS ORDERED: FUROSEMIDE 40 MG/4 ML VIAL ONE (15:44)
[2017-07-15] MEDS ORDERED: ISOPROTERENOL HCL 1 MG/5 ML AMP ONE (15:44)
[2017-07-15] MEDS ORDERED: PROTAMINE SULFATE 50 MG/5 ML VIAL ONE (15:44)
[2017-07-15] MEDS ORDERED: LEVOFLOXACIN 500 MG PREMIX INJ 100 ML IV ONE (15:45)
[2017-07-15] MEDS ORDERED: HEPARIN SODIUM - IV 10,000 UNITS/10 ML VIAL ONE (15:45)
[2017-07-15] MEDS ORDERED: HEPARIN-NS/PF INJ 1,500 ML ONE (15:59)
[2017-07-15] MEDS ORDERED: LORazepam 2 MG/ML VIAL IV PUSH PRN (18:30)
[2017-07-15] MEDS ORDERED: ONDANSETRON HCL 4 MG/2 ML VIAL IV PUSH PRN (18:30)
[2017-07-15] MEDS ORDERED: BACITRACIN OINT 0.9 GM PKT TOP ONE (18:30)
[2017-07-15] MEDS ORDERED: SODIUM CHLOR 0.9% 250 ML INJ 250 ML IV PRN (18:30)
[2017-07-15] MEDS ORDERED: LIDOCAINE HCL 1% 50 ML VIAL INFIL PRN (18:30)
[2017-07-15] MEDS ORDERED: ATROPINE SULFATE 1 MG/ML VIAL IV PUSH PRN (18:30)
[2017-07-15] MEDS ORDERED: METOCLOPRAMIDE HCL 10 MG/2 ML VIAL IV PUSH PRN (18:30)
[2017-07-15] MEDS ORDERED: oxyCODONE/ACETAMINOPHEN 5 MG/325 MG TAB PO PRN ×2 (18:30)
--- NOTE | 2017-07-15 18:31 | CATHPROC ---
Patient Name: AME NUNEZ Study #: [id number] Initial MD: Serge Engle Date of : 1935 Study Date: 07/15/2017 Cardiac Catheterization Report 07/15/2017 7:01:08 PM Financial #: [id number] 1 of 10 Patient Name: AME NUNEZ Study #: [id number] Initial MD: Serge Engle Date of : 1935 Study Date: 07/15/2017 Entire Case Report Patient Information Patient Name AME NUNEZ Date of 1935 Age 81 years Financial # [id number] Gender F AlternateID Lab Number 2 Room Number 253 Height (in) 61.0 Height (cm) 154.9 BSA 1.55 Weight (lbs) 124.5 Weight (kg) 56.6 Patient Address/Phone Number Home Address [facility] Home Phone Number [address] [facility] [id number] Study Information Study Number Admission Scheduled Start Study Start [id number] Jul 13 2017 5:36PM 07/15/2017 Jul 15 2017 3:24PM [place] [facility] Electrophysiology Study Admit Source Facility Department Emergency department [facility] - Support Services Specialist Physician and Clinical Staff Initial Serge Soto Engine Mechanic Jennifer Walker,HAND THERAPIST TECH2 Engine Mechanic Leanna Guzman,COMPLIANCE QUALITY PERFORMANCE ANALYST Other Anesthesia, TEST SKEIN WINDER Recorder Ame Mitchell,HUMBERTO Recorder Jaleesa Petit,RN Recorder Sherrill Aceves,HUMBERTO Scrub Radha Daniels,RT(R) TECH2 Procedures Performed Procedure Location (Site) Vessel Name Ablation Procedure ICE CATHETER INSERT RA Atruim RF Ablation LT. ATRIUM LT. ATRIUM Wire insertion Fem Vein (left) Femoral Vein 07/15/2017 7:01:08 PM Financial #: [id number] 2 of 10 Patient Name: AME NUNEZ Study #: [id number] Initial MD: Serge Engle Date of : 1935 Study Date: 07/15/2017 Equipment Time Manager Intel Description Size Mfg Part Number Used/Scraped NEEDLE, TRANSSEPTAL NRG 98 [id number] 15:40 [facility] Used C1 *[id number] [employer]/ EP [id number] 15:40 KIT, TRANSDUCER / AFIB Used PACER *[id number]- CATHETER, TACTICATH ABLAT BUNDLE 15:[address] [place] Used 65 BUNDLE *[id number]- BUNDLE [id number] CATHETER, FR7 OPTIMA SPIRAL 15:[address] [place] FR7 *[id number]- Used BUNDLE BUNDLE [id number] 15:40 [place] CATHETER, JSN, QUAD BUNDLE FR 5 *[id number]- Used BUNDLE [id number] 15:40 [place] CATHETER, JSN, QUAD BUNDLE FR 5 *[id number]- Used BUNDLE 29190-[id number] SET, COOL POINT TUBING 15:40 [place] *[id number]- Used BUNDLE BUNDLE SHEATH, FR8.5 STEERABLE SM 15:40 [place] 71CM [id number] Used 71CM BUNDLE COVER, TRANSDUCER CABLE 612-113 15:40 [employer] Used ACUNAV *[id number] 15:40 CORDIS/PACER SHEATH, FR10 BIPIN 11CM FR 10 Used *[id number] 15:40 CORDIS/PACER SHEATH, FR9 BIPIN 11CM FR 9 [id number] Used WIRE, HYDROSTEER 150CM [id number] 17:10 DAIG/[place] MEDICAL 150CM Used ANGLED GLIDE *[id number] 15:40 [email or web address] INDUSTRIES PACK, CCL CUSTOM * Used *[id number] 15:40 [email or web address] PACER CHAMBERLAIN, LIMB * 2530 *[id number] Used [id number] 15:40 [email or web address] MEDICAL SHEATH, FR4.5 PRELUDE 11CM FR 4.5 Used 035ACT [id number] 15:40 NAMIC TUBING, HIGH PRESSURE 48" 48" Used *[id number] 15:40 NAMIC TUBING, HIGH PRESSURE 48" 48" Used *[id number] [id number] 15:40 [place] MEDICAL BLANKET,WARM AIR CCL * Used *[id number] [id number] 15:40 [place] MED[facility] ELECTRODE KIT, MARIAN X SURFACE * Used *8488390 085852 15:40 [place] MEDICAL SHEATH, EPS, FR6 FAST CATH FR 6 Used *6827091 15:40 [place] MEDICAL SHEATH, EPS, FR7 FAST CATH FR 7 [id number] Used 281792 15:40 [facility] MEDICAL SHEATH, EPS, FR8 FAST CATH FR 8 Used *[id number] CATHETER, ACUNAV FR10 ICE [id number] 17:12 SMITH FR 10 Used (SMITH) *[id number] [facility] PAD, ELECTROSURGICAL 15:40 * [id number] *[id number] Used SURGICAL GROUNDING (BLUE) 07/15/2017 7:01:08 PM Financial #: [id number] Patient Name: AME NUNEZ Study #: [id number] Initial MD: Serge Engle Date of : 1935 Study Date: 07/15/2017 Insurance Information Insurance Payor Medicare, Private Health Insurance Third Alliance Party Third Alliance Party Number MEDICARE A B MCRAB History: Current Medications Medication Dosage/Unit Route Frequency Last Date/Time Taken CARDIZEM XARELTO History: Allergies Allergy Reaction oxycodone acetaminophen albuterol History: Risk Factors Family History of Hypertension Premature CAD Yes Yes Diabetes Diabetes Therapy History: Symptoms/Diagnosis Selection Items Palpitations SOB History: Arrhythmias Selection Items Atrial fibrillation Labs Hgb (g/dl) Hct (%) RBC (MIL/MM3) WBC (l/cumm) Platelets (thousands) 11.60-17.00 35.00-51.00 4.00-5.90 4.00-11.00 150.00-450.00 14.6 43.9 4.7 6 237 Glucose (mg/dl) BUN (mg/dl) Creatinine (mg/dl) BUN:Creatinine (1:x) 74.00-106.00 7.00-18.00 0.50-1.30 10.00-20.00 94 15 0.7 21.4 Na (meq/l) K (meq/l) Cl (meq/l) CO2 (mmol/L) Ca (mg/dl) 136.00-145.00 3.50-5.10 98.00-107.00 21.00-32.00 8.50-10.10 141 3.6 105 26 9.5 07/15/2017 7:01:08 PM Financial #: [id number] 4 of 10 Patient Name: AME NUNEZ Study #: [id number] Initial MD: Serge Engle Date of : 1935 Study Date: 07/15/2017 PT (sec) INR (PTT:PT) 9.80-11.60 0.90-1.10 10.2 1 Medication Medication Total Dose (Bolus/Oral) Medication Total Dosage/Unit 1% XYLOCAINE 40 mL HEPARIN 99294 units PROTAMINE 40 mg Medications (Bolus/Oral) Medication Time Given Dosage/Unit Administered By Reason 1% XYLOCAINE 07/15/2017 4:56:00 PM 20 mL Serge Engle 20 mL 1% XYLOCAINE given in lab by Serge Engle in Left Groin via Subcutaneous. 1% XYLOCAINE 07/15/2017 5:07:10 PM 20 mL Serge Engle 20 mL 1% XYLOCAINE given in lab by Serge Engle in Right Groin via Subcutaneous. HEPARIN 07/15/2017 5:14:54 PM 12729 units Anesthesia, TEST SKEIN WINDER As per physicians narcisa bal order 39855 units HEPARIN given in lab by Anesthesia, TEST SKEIN WINDER via Peripheral IV. Ordered by Serge Engle. Brittany son: As per physicians verbal order. HEPARIN 07/15/2017 5:30:34 PM 2000 units Anesthesia, TEST SKEIN WINDER 2000 units HEPARIN given in lab by Anesthesia, TEST SKEIN WINDER via Peripheral IV. Ordered by Serge Engle. PROTAMINE 07/15/2017 6:24:47 PM 40 mg Anesthesia, TEST SKEIN WINDER As per physicians verb al order 40 mg PROTAMINE given in lab by Anesthesia, TEST SKEIN WINDER via Peripheral IV. Ordered by Serge Engle. Reason: As per physicians verbal order. 07/15/2017 7:01:08 PM Financial #: [id number] 5 of 10 Patient Name: AME NUNEZ Study #: [id number] Initial MD: Serge Engle Date of : 1935 Study Date: 07/15/19 18 Medication (Drip) Medication Time Given Dosage/Unit Concentration/Unit Diluent (ml) Solution HEPARIN DRIP 07/15/2017 5:30:56 PM 1000 units/hr 91756 units 250 D5W 1000 units/hr HEPARIN DRIP given in lab by Anesthesia, TEST SKEIN WINDER via Peripheral IV. Pump/Drip Flow = 10 ml /hr using [place] [address] units in 250 ml. Ordered by Serge Engle. ISUPREL 07/15/2017 6:06:01 PM 5 mcg/min 1 mg 250 NaCl .9 5 mcg/min ISUPREL given in lab by Anesthesia, TEST SKEIN WINDER via Peripheral IV. Pump/Drip Flow = 75 ml/hr using NaCl .9 with a concentration of 1 mg in 250 ml. Ordered by Serge Engle. ISUPREL DRIP STOPPED 07/15/2017 6:22:21 PM 0 units/hr 0 0 units/hr ISUPREL DRIP STOPPED given in lab by Anesthesia, ASHLEY. Pump/Drip Flow = 0 ml/hr using [Cristela ution Name]. Ordered by Serge Engle. IV Solutions 07/15/2017 3:50:10 PM 0 mL (IV) 1000 NaCl .9 Patient arrived on IV Solutions given by Ame Mitchell RN in Right Wrist via Peripheral IV. Pump/D rip Flow = 20 ml/hr using NaCl .9. Ordered by Serge Engle. Reason: As per physicians verbal order. IV Solutions 07/15/2017 3:50:45 PM 0 mL (IV) 500 NaCl .9 IV Solutions given in lab by Ame Mitchell RN in Left Forearm via Peripheral IV. Pump/Drip Flow = 20 ml/hr using NaCl .9. Ordered by Serge Engle. Reason: As per physicians verbal order. LEVAQUIN 07/15/2017 4:12:42 PM 100 mL/hr 500 100 NaCl .9 100 mL/hr LEVAQUIN given in lab by ASHLEY Laguerre via Peripheral IV. Pump/Drip Flow = 0 ml/hr using NaCl .9 with a concentration of 500 in 100 ml. Ordered by Serge Engle. Reason: As per physicians verbal order. for patterson catheter Initial Case Assessment Cardiovascular HR Rhythm NIBP Chest Pain 107 afib 167/95 0 Circulatory - Right Pulses Dorsalis Pedis 2 Scale (0,1,2,3,4,d) Circulatory - Left Pulses Dorsalis Pedis 2 Scale (0,1,2,3,4,d) Neurological State Oriented to time-place- Alert Moves all extremities person Respiration - General Respiration Rate SpO2 (%) (B/min) 20 100 07/15/2017 7:01:08 PM Financial #: [id number] 6 of 10 Patient Name: AME NUNEZ Study #: [id number] Initial MD: Serge Engle Date of : 1935 Study Date: 07/15/2017 Final Case Assessment Cardiovascular HR Rhythm NIBP Chest Pain 85 sr 94/50 0 Edema Present Skin color Skin None Normal Warm Dry Circulatory - Right Pulses Dorsalis Pedis 1 Scale (0,1,2,3,4,d) Circulatory - Left Pulses Dorsalis Pedis 1 Scale (0,1,2,3,4,d) Circulatory - Lower Extremities Color Lower Right Color Lower Left Normal Normal Neurological State Lethargic Moves all extremities Respiration - General Respiration Rate SpO2 (%) (B/min) 16 4 Chronological Log Time Study Chronological Log 15:24:27 Patient arrived via Bed. 15:24:29 Patient Name, D.O.B, / Armband Verified By R.N. 15:24:29 Consent signed by the physician and the patient and verified by the Support Services Specialist staff. 15:24:30 Pre-op and post- op instructions given; patient acknowledges understanding of instructions. 15:24:32 Verbal Stimulation=2 Physical Stimulation=2 Airway=2 Respiration=2 TOTAL=8. (0=absent, 1=li mited, 2=present) 15:24:34 Patient has been NPO for More than 6Hrs. 15:24:35 Skin Breakdown- none per pt. 15:24:44 History and physical on the chart. 15:27:14 Mi Prominences Protected 07/15/2017 7:01:08 PM Financial #: [id number] 7 of 10 Patient Name: AME NUNEZ Study #: [id number] Initial MD: Serge Engle Date of : 1935 Study Date: 07/15/2017 15:36:45 Disposable Defibrillator Pads Placed On Patient. 15:36:52 Patient Warmer Placed on the Table. 15:41:37 Table restraints applied according to hospital policy Assessment: Initial Case, KE=842 BPM, Rhythm=afib, SIRM=915/95 mmhg, Chest Pain=0 Right Pulses: Zane Ped=2 15:45:00 Left Pulses: Zane Ped=2 Neurological: State=Alert, Ox3, FINE Respiration: Resp=20 B/min, ToE9=233 % 15:47:59 A # 20 IV was noted in the Wrist (right). Grade = patent 15:49:29 A # 20 IV was noted in the Forearm (left). Grade = patent Patient arrived on IV Solutions given by Ame Mitchell RN in Right Wrist via Peripheral IV. Pump/Drip Flow = 20 15:50:10 ml/hr using NaCl .9. Ordered by Serge Engle. Reason: As per physicians verbal order. IV Solutions given in lab by Ame Mitchell RN in Left Forearm via Peripheral IV. Pump/Drip F low = 20 ml/hr using 15:50:45 NaCl .9. Ordered by Serge Engle. Reason: As per physicians verbal order. 15:54:14 Reference ECG taken 16:01:34 Anesthesia at bedside. ASHLEY Arevalo Assumes care of patient. 100 mL/hr LEVAQUIN given in lab by Anesthesia, TEST SKEIN WINDER via Peripheral IV. Pump/Drip Flow = 0 ml/hr using NaCl .9 with 16:12:42 a concentration of 500 in 100 ml. Ordered by Serge Engle. Reason: As per physicians verbal or gigi. for patterson catheter 16:21:06 Anesthesiologist here for intubation. 16:26:02 Pt intubated. 14 fr patterson inserted by LATONIA treviño. clear yellow urine obtained. 16:35:08 Bilsteral groins prepped with 2% chlorhexidine. 16:38:26 A sterile drape was applied after a 3 minute waiting period. 16:43:00 MD paged 16:50:29 MD arrived. Time Out. Correct patient, procedure, procedure equipment, site and side verified with physicia n present. Time 16:52:10 concurred by MD, individual staff and TEST SKEIN WINDER. Time Out #2 - Consents verified, patient in correct position, all results are labled and displa yed, safety precautions 16:52:32 taken, antibiotics administered. Time out concurred by MD, individual staff and TEST SKEIN WINDER in procedu re 16:52:58 Case Start 16:53:11 TARUN in progress. 16:55:01 Tarun complete 16:56:00 20 mL 1% XYLOCAINE given in lab by Serge Engle in Left Groin via Subcutaneous. 16:56:55 Vascular access was obtained in the Fem Art (left). A WIRE, HYDROSTEER 150CM ANGLED GLIDE 150CM was inserted via Fem Vein (left). attempted to a ccess left 16:57:00 fem vein w multiple sticks. A SHEATH, FR4.5 PRELUDE 11CM FR 4.5 was advanced into the Fem Art (left) using the Modified Kami mary technique. 16:57:05 0.9ns pressure bag connected. 17:07:10 20 mL 1% XYLOCAINE given in lab by Serge Engle in Right Groin via Subcutaneous. 17:07:21 A SHEATH, EPS, FR8 FAST CATH FR 8 was advanced into the Fem Vein (right) using the Modified Seldinger technique. 17:09:07 A SHEATH, EPS, FR6 FAST CATH FR 6 was advanced into the Fem Vein (right) using the Modified Seldinger technique. 17:09:26 A SHEATH, FR10 BIPIN 11CM FR 10 was advanced into the Fem Vein (right) using the Modified Seldinger technique. A CATHETER, JSN, QUAD BUNDLE FR 5 was advanced vis Fem Vein (right) and placed in the CS. Place ment was 17:11:14 visually confirmed under fluoroscopy. 17:12:01 Ice catheter Was Postioned. 07/15/2017 7:01:08 PM Financial #: [id number] 8 of 10 Patient Name: AME NUNEZ Study #: [id number] Initial MD: Serge Engle Date of : 1935 Study Date: 07/15/2017 A SHEATH, FR8.5 STEERABLE SM 71CM BUNDLE 71CM was exchanged in the Fem Vein (right). This was n ecessary in 17:13:45 order to accomodate a larger catheter. 8 [place] [address]471 units HEPARIN given in lab by Anesthesia, TEST SKEIN WINDER via Peripheral IV. Ordered by Danyell Engle Reason: As per 17:14:54 physicians verbal order. 17:15:01 [place] in 17:15:19 A eps was advanced to the right atrium and passed through the septal wall to the left atriu m. 17:15:29 [place] out A CATHETER, FR7 OPTIMA SPIRAL BUNDLE FR7 was advanced vis Fem Vein (right) and placed in the LA . Placement 17:17:02 was visually confirmed under fluoroscopy. Mapping in progress. 17:18:20 mapping in progress 17:23:10 Activated Clotting Time Drawn A CATHETER, TACTICATH ABLAT 65 BUNDLE was advanced vis Fem Vein (right) and placed in the LA. P lacement was 17:26:00 visually confirmed under fluoroscopy. 17:27:46 RF Ablation of the LT. ATRIUM with a CATHETER, TACTICATH ABLAT 65 BUNDLE. 17:29:40 ACT (Normal Range 90-180) = 317 17:30:34 2000 units HEPARIN given in lab by Anesthesia, TEST SKEIN WINDER via Peripheral IV. Ordered by Joaquín Engle. 1000 units/hr HEPARIN DRIP given in lab by Anesthesia, TEST SKEIN WINDER via Peripheral IV. Pump/Drip Flow = 10 ml/hr using 17:30:56 [place] [address] units in 250 ml. Ordered by Hanscy. Oniel 17:31:16 ABLATION IN PROGRESS 17:41:06 Activated Clotting Time Drawn 17:47:30 ACT (Normal Range 90-180) = 350 5 mcg/min ISUPREL given in lab by Anesthesia, TEST SKEIN WINDER via Peripheral IV. Pump/Drip Flow = 75 ml/hr using NaCl .9 with 18:06:01 a concentration of 1 mg in 250 ml. Ordered by Serge Engle. 0 units/hr ISUPREL DRIP STOPPED given in lab by Anesthesia, TEST SKEIN WINDER. Pump/Drip Flow = 0 ml/hr in g [Solution Name]. 18:22:21 Ordered by Serge Engle. 18:22:58 Catheter(s) removed without difficulty A SHEATH, FR9 BIPIN 11CM FR 9 was exchanged in the Fem Vein (right). This was necessary in ord er to minimize 18:23:03 site leakage. 40 mg PROTAMINE given in lab by Anesthesia, TEST SKEIN WINDER via Peripheral IV. Ordered by Serge Engle. Mike garnica: As per 18:24:47 physicians verbal order. 18:24:58 PACU called. Spoke to DEIDRE 18:24:59 Bedside Report will be given. 18:31:02 Defibrillator and ground pads removed. Skin intact. 18:35:10 ACT (Normal Range 90-180) = 152 18:38:00 Sheath removed; pressure applied to access site. HH RIGHT GROIN. DC L GROIN.. NO S/SX OF BL EEDING 18:54:11 Pt extubated by TEST SKEIN WINDER Assessment: Final Case, HR=85 BPM, Rhythm=sr, NIBP=94/50 mmhg, Chest Pain=0, Edema=None, Color= Normal, Skin = Warm, Dry Right Pulses: Zane Ped=1 Left Pulses: Zane Ped=1 18:57:32 Lower Right Extremities: Color=Normal Lower Left Extremities: Color=Normal Neurological: State=Lethargic, FINE Respiration: Resp=16 B/min, SpO2=4 % 18:59:23 No case complications noted. 18:59:23 Cine recording checked. 19:00:00 Case End 07/15/2017 7:01:08 PM Financial #: [id number] Patient Name: AME NUNEZ Study #: [id number] Initial MD: Serge Engle Date of : 1935 Study Date: 07/15/2017 19:00:53 Ablation procedure performed: AFIB. 19:00:58 EP Procedure was performed. 19:01:39 Sterile dressing applied to sites. Sites wnl. 19:05:10 Patient moved to stretcher. To Pacu w TEST SKEIN WINDER. End Study - Contrast Media Used In Study Contrast Total Opened (mL) Total Used (mL) Total Wasted (mL) Unspecified 0 0 0 End Study - Maximum Contrast Load Max Contrast Load (mL) 404.2 End Study - Radiation Exposure Fluoro Time (minutes) 1.8 End Study - Patient Disposition Complications Transferred To Interventional Outcome No Telemetry Bed successful 07/15/2017 7:01:08 PM Financial #: [id number]
[2017-07-15] MEDS ORDERED: DO NOT ADM ANY ANTICOAGULANT DRUGS PRN (19:13)
[2017-07-15] MEDS ORDERED: AMIODARONE INJ 300 MG in DEXTROSE 5% IN WATER 100ML INJ 97 ML IV ONE ×2 (19:45)
[2017-07-15] MEDS ORDERED: *morphine SULFATE 4 MG/ML PERIprocedure ONLY ONE (19:45)
[2017-07-15] MEDS ORDERED: AMIODARONE INJ 450 MG in SODIUM CHLOR 0.9% (EXCEL) INJ 250 ML IV PRN (20:00)
[2017-07-16] VITALS (11 sets, daily range): BP systolic 116–131; BP diastolic 58–86; PULSE 74–96; RESP 18–20; TEMP 97.2–97.4; O2SAT 92–96
[2017-07-16 07:23] LABS: INTERNATIONAL NORMALIZED RATIO 1.1 RATIO
[2017-07-16 07:26] LABS: AUTOMATED NEUTROPHIL # 6.2 TH/MM3 (1.8-7.7); BASOPHIL % 0.1 % (0.0-2.0); HEMATOCRIT 34.3 % (35.0-46.0); HEMOGLOBIN 11.6 GM/DL (11.6-15.3); LYMPH % 6.3 % (9.0-44.0); LYMPHOCYTE # 0.4 TH/MM3 (1.0-4.8); MEAN CELL VOLUME 93.3 FL (80.0-100.0); MEAN CORPUSCULAR HEMOGLOBIN 31.6 PG (27.0-34.0); MEAN CORPUSCULAR HGB CONC 33.8 % (32.0-36.0); MEAN PLATELET VOLUME 8.6 FL (7.0-11.0); MONO % 5.6 % (0.0-8.0); MONOCYTE # 0.4 TH/MM3 (0-0.9); PLATELET COUNT 173 TH/MM3 (150-450); RED BLOOD COUNT 3.68 MIL/MM3 (4.00-5.30); RED CELL DISTRIBUTION WIDTH 14.4 % (11.6-17.2); WHITE BLOOD COUNT 7.1 TH/MM3 (4.0-11.0)
[2017-07-16 07:41] LABS: BICARBONATE 23.4 MEQ/L (21.0-32.0); CALCIUM 8.6 MG/DL (8.5-10.1); CREATININE 0.82 MG/DL (0.50-1.00)
[2017-07-16] MEDS: INSULIN ASPART SUPPLEMENTAL SCALE SQ SCH (07:55)
[2017-07-16] MEDS: SODIUM CHLORIDE 0.9% FLUSH 10 ML FLUSH IV FLUSH SCH (09:00)
[2017-07-16] MEDS ORDERED: RIVAROXABAN 20 MG TAB PO SCH (09:00)
[2017-07-16] MEDS ORDERED: DILTIAZEM-CD 180 MG CAP ER PO SCH (09:00)
--- NOTE | 2017-07-16 09:24 | PD.CARD.PN ---
Subjective Subjective Remarks Doing well, converted to SR, no complaints. Objective Medications Current Medications Medications (Trade) Dose Ordered Sig/Ambar Route Start Time Stop Time Status Last Admin (Valtrex) 1,000 mg DAILY PO 07/14/17 09:00 07/15/17 08:53 (NS Flush) 2 ml UNSCH PRN IV FLUSH 07/13/17 19:00 (NS Flush) 2 ml BID IV FLUSH 07/13/17 21:00 07/15/17 08:57 (D50w (Vial) Inj) 50 ml UNSCH PRN IV PUSH 07/13/17 19:15 (Glucagon Inj) 1 mg UNSCH PRN OTHER 07/13/17 19:15 (NovoLOG SUPPLEMENTAL SCALE) 1 ACHS SLIDING SCALE SQ 07/13/17 21:00 (Restoril) 15 mg HS PRN PO 07/13/17 21:15 07/14/17 22:57 ([place] Thyroid) 45 mg DAILY PO 07/14/17 12:45 07/15/17 08:56 (Percocet 5-325 Mg) 1 tab Q4H PRN PO 07/15/17 18:30 (Percocet 5-325 Mg) 2 tab Q4H PRN PO 07/15/17 18:30 (Ativan Inj) 0.5 mg UNSCH PRN IV PUSH 07/15/17 18:30 07/16/17 18:29 (Atropine Inj) 0.5 mg UNSCH PRN IV PUSH 07/15/17 18:30 Sodium Chloride 250 ml @ 500 mls/hr ONCE PRN IV 07/15/17 18:30 07/16/17 18:29 (Reglan Inj) 10 mg Q4H PRN IV PUSH 07/15/17 18:30 (Zofran Inj) 4 mg Q4H PRN IV PUSH 07/15/17 18:30 (Xylocaine 1% Inj (50 ml)) 10 ml UNSCH PRN INFIL 07/15/17 18:30 07/16/17 18:29 (Cardizem Cd) 180 mg DAILY PO 07/16/17 09:00 (Xarelto) 20 mg DAILY PO 07/16/17 09:00 Amiodarone HCl 450 mg/Sodium Chloride 259 ml @ 34.53 mls/ hr TITRATE PRN IV 07/15/17 20:00 07/15/17 20:22 Miscellaneous Information ALL NURSING DEPARTME... UNSCH PRN .XX 07/15/17 19:13 07/16/17 19:12 Vital Signs / I&O Vital Signs Date Time Temp Pulse Resp B/P (MAP) Pulse Ox O2 Delivery O2 Flow Rate FiO2 07/16/17 08:00 78 07/16/17 07:00 81 07/16/17 07:00 97.2 80 18 123/86 (98) 96 07/16/17 06:00 78 07/16/17 05:00 84 07/16/17 04:00 80 07/16/17 04:00 84 116/58 (77) 07/16/17 03:00 97.4 80 20 123/65 (84) 92 07/16/17 03:00 80 07/16/17 02:00 96 07/16/17 02:00 130/70 (90) 07/16/17 01:00 131/77 (95) 07/16/17 01:00 86 07/16/17 00:00 80 07/16/17 00:00 80 129/72 (91) 07/15/17 23:30 79 127/73 (91) 07/15/17 23:00 85 07/15/17 23:00 97.3 79 16 122/71 (88) 96 07/15/17 22:30 78 140/75 (96) 07/15/17 22:00 78 07/15/17 22:00 79 123/101 (108) 07/15/17 21:45 77 133/72 (92) 07/15/17 21:30 79 135/79 (97) 07/15/17 21:15 78 120/72 (88) 07/15/17 21:00 79 07/15/17 21:00 97.3 79 16 132/79 (96) 98 07/15/17 20:45 97.7 76 18 128/74 (92) 100 Nasal Cannula 2 07/15/17 20:30 77 19 133/74 (93) 100 Nasal Cannula 2 07/15/17 20:22 109 133/62 07/15/17 20:15 107 19 133/82 (99) 100 Nasal Cannula 2 07/15/17 20:00 131 18 110/66 (81) 100 Nasal Cannula 2 07/15/17 19:53 128 125/79 07/15/17 19:45 132 23 125/79 (94) 100 Nasal Cannula 2 07/15/17 19:30 139 25 116/75 (89) 100 Nasal Cannula 2 07/15/17 19:15 139 31 104/53 (70) 100 Nasal Cannula 3 07/15/17 19:13 97.6 140 28 171/70 (103) 100 Nasal Cannula 3 07/15/17 11:50 98.1 109 18 129/77 (94) 97 07/15/17 11:44 109 129/77 I/O 07/15/17 07/15/17 07/15/17 07/16/17 07/16/17 07/16/17 07:00 15:00 23:00 07:00 15:00 23:00 Intake Total 480 ml 753 ml 780 ml Output Total 1000 ml 400 ml 350 ml Balance -520 ml 353 ml 430 ml Intake Oral 480 ml 0 ml 780 ml IV Total 303 ml Other 450 ml Output Urine Total 1000 ml 400 ml 350 ml # Bowel Movements 2 1 Physical Exam GENERAL: This is a well-nourished, well-developed patient, in no apparent distress. CARDIOVASCULAR: Regular rate and rhythm without murmurs, gallops, or rubs. RESPIRATORY: Clear to auscultation. Breath sounds equal bilaterally. No wheezes , rales, or rhonchi. GASTROINTESTINAL: Abdomen soft, non-tender, nondistended. Normal active bowel sounds MUSCULOSKELETAL: Extremities without clubbing, cyanosis, or edema. NEURO: Alert & Oriented x4 to person, place, time, situation. Moves all ext x4 Bilateral groins: no bruit/hematoma Laboratory Laboratory Tests Test 07/16/17 07:05 White Blood Count 7.1 TH/MM3 Red Blood Count 3.68 MIL/MM3 Hemoglobin 11.6 GM/DL Hematocrit 34.3 % Mean Corpuscular Volume 93.3 FL Mean Corpuscular Hemoglobin 31.6 PG Mean Corpuscular Hemoglobin Concent 33.8 % Red Cell Distribution Width 14.4 % Platelet Count 173 TH/MM3 Mean Platelet Volume 8.6 FL Neutrophils (%) (Auto) 88.0 % Lymphocytes (%) (Auto) 6.3 % Monocytes (%) (Auto) 5.6 % Eosinophils (%) (Auto) 0.0 % Basophils (%) (Auto) 0.1 % Neutrophils # (Auto) 6.2 TH/MM3 Lymphocytes # (Auto) 0.4 TH/MM3 Monocytes # (Auto) 0.4 TH/MM3 Eosinophils # (Auto) 0.0 TH/MM3 Basophils # (Auto) 0.0 TH/MM3 CBC Comment DIFF FINAL Differential Comment Prothrombin Time 11.0 SEC Prothromb Time International Ratio 1.1 RATIO Activated Partial Thromboplast Time 23.0 SEC Blood Urea Nitrogen 18 MG/DL Creatinine 0.82 MG/DL Random Glucose 123 MG/DL Calcium Level 8.6 MG/DL Sodium Level 139 MEQ/L Potassium Level 4.1 MEQ/L Chloride Level 107 MEQ/L Carbon Dioxide Level 23.4 MEQ/L Anion Gap 9 MEQ/L Estimat Glomerular Filtration Rate 67 ML/MIN Imaging Last Impressions Chest X-Ray 07/13/17 1531 Signed Impressions: Service Date/Time: Thursday, July 13, 2017 15:44 - CONCLUSION: 1. No acute cardiopulmonary disease. Jameel Pedroza MD Assessment and Plan Problem List: (1) Atrial tachycardia ICD Codes: I47.1 - Supraventricular tachycardia Plan: s/p ablation (2) Atrial fibrillation with RVR ICD Codes: I48.91 - Unspecified atrial fibrillation Status: Acute Plan: converted on amio ggt, initiated amio PO 200mg qd (per Dr. Kwon) Assessment and Plan Ok to d/c home and f/u with Dr. kwon. Clinton Erickson MD Jul 16, 2017 09:24
[2017-07-16] MEDS ORDERED: AMIODARONE 200 MG TAB PO SCH (09:30)
[2017-07-16] MEDS: valACYclovir HCL 500 MG TAB PO SCH (09:43)
[2017-07-16] MEDS: THYROID 15 MG TAB PO SCH (09:43)
[2017-07-16] MEDS ORDERED: AMIO200T PO (10:41)
--- NOTE | 2017-07-16 10:42 | HHI.DCPOC ---
Discharge Care Plan Diagnosis: (1) Atrial fibrillation with RVR (2) Hypothyroidism Goals to Promote Your Health * To prevent worsening of your condition and complications * To maintain your health at the optimal level Directions to Meet Your Goals Take your medications as prescribed Follow your dietary instruction Follow activity as directed Keep your appointments as scheduled Take your immunizations and boosters as scheduled If your symptoms worsen call your PCP, if no PCP go to Urgent Care Center or Emergency Room Smoking is Dangerous to Your Health. Avoid second hand smoke Call the 24-hour hour crisis hotline for domestic abuse at Pete Davenport MD R1 Jul 16, 2017 10:42
--- NOTE | 2017-07-16 10:46 | HHI.FPPN ---
Subjective Remarks Patient evaluated on rounds morning. No acute events overnight. Vital signs remained stable with heart rate in the 70s and 80s. Patient states she is feeling well and is ready to go home. No chest pain, shortness of breath, nausea or vomiting, diarrhea. (Pete Davenport MD R1) Objective Vitals Vital Signs Date Time Temp Pulse Resp B/P (MAP) Pulse Ox O2 Delivery O2 Flow Rate FiO2 07/16/17 10:00 89 07/16/17 09:00 74 07/16/17 08:00 78 07/16/17 07:00 81 07/16/17 07:00 97.2 80 18 123/86 (98) 96 07/16/17 06:00 78 07/16/17 05:00 84 07/16/17 04:00 80 07/16/17 04:00 84 116/58 (77) 07/16/17 03:00 97.4 80 20 123/65 (84) 92 07/16/17 03:00 80 07/16/17 02:00 96 07/16/17 02:00 130/70 (90) 07/16/17 01:00 131/77 (95) 07/16/17 01:00 86 07/16/17 00:00 80 07/16/17 00:00 80 129/72 (91) 07/15/17 23:30 79 127/73 (91) 07/15/17 23:00 85 07/15/17 23:00 97.3 79 16 122/71 (88) 96 07/15/17 22:30 78 140/75 (96) 07/15/17 22:00 78 07/15/17 22:00 79 123/101 (108) 07/15/17 21:45 77 133/72 (92) 07/15/17 21:30 79 135/79 (97) 07/15/17 21:15 78 120/72 (88) 07/15/17 21:00 79 07/15/17 21:00 97.3 79 16 132/79 (96) 98 07/15/17 20:45 97.7 76 18 128/74 (92) 100 Nasal Cannula 2 07/15/17 20:30 77 19 133/74 (93) 100 Nasal Cannula 2 07/15/17 20:22 109 133/62 07/15/17 20:15 107 19 133/82 (99) 100 Nasal Cannula 2 07/15/17 20:00 131 18 110/66 (81) 100 Nasal Cannula 2 07/15/17 19:53 128 125/79 07/15/17 19:45 132 23 125/79 (94) 100 Nasal Cannula 2 07/15/17 19:30 139 25 116/75 (89) 100 Nasal Cannula 2 07/15/17 19:15 139 31 104/53 (70) 100 Nasal Cannula 3 07/15/17 19:13 97.6 140 28 171/70 (103) 100 Nasal Cannula 3 07/15/17 11:50 98.1 109 18 129/77 (94) 97 07/15/17 11:44 109 129/77 I/O 07/15/17 07/15/17 07/15/17 07/16/17 07/16/17 07/16/17 07:00 15:00 23:00 07:00 15:00 23:00 Intake Total 480 ml 753 ml 780 ml Output Total 1000 ml 400 ml 350 ml Balance -520 ml 353 ml 430 ml Intake Oral 480 ml 0 ml 780 ml IV Total 303 ml Other 450 ml Output Urine Total 1000 ml 400 ml 350 ml # Bowel Movements 2 1 (Pete Davenport MD R1) Result Diagram: 07/16/17 0707/16/17 07 Objective Remarks GENERAL: in NAD, no resp distress, nontoxic. HEENT: NCAT, no scleral icterus, no conjunctival injection. MMM. NECK: Supple, no meningeal signs. No obvious JVD. CV: Regular rate and rhythm. No murmurs. CHEST/PULM: CTAB, no crackles, no wheezes. ABD/GI: +BS, soft, nontender, nondistended. EXT: 2+ DP pulses. No edema. No calf tenderness. NEURO: Awake, alert. Normal muscle tone. SKIN: No rashes, no jaundice. PSYCH: Mood and affect are appropriate. Speech fluent. Does not appear to respond to internal stimuli. (Pete Davenport MD R1) A/P Assessment and Plan 81-year-old female, history of chronic A. fib and previous ablation and cardioversions, presents with palpitations and tachycardia. Successful Ablation on 07/15. Discharging on amiodarone, Cardizem Discharge Planning Discharge today with cardiology follow-up (Pete Davenport MD R1) Attending Attestation Patient seen, examined, and discussed with Dr. Davenport. I agree with assessment and management as documented and discussed with me. Discharge home today. Discussed risks, benefits, and side effects of amiodarone. Pt information handout about medication provided. PFTs ordered to get baseline. Baseline thyroid function tests and LFTs WNL. (Shayy Padilla MD) Problem List: (1) Atrial fibrillation with RVR ICD Codes: I48.91 - Unspecified atrial fibrillation Status: Acute Plan: Patient with known chronic a fib. She has undergone ablation and cardioversion in the past. Admitted for anticipated ablation by Dr. Engle on 2/2 Heart rate in the 70s and 80s overnight following ablation Resuming Xarelto today Starting amiodarone 200 mg daily per cardiology recommendations Continuing Cardizem 180 mg daily Discontinuing flecainide Follow-up with Dr. Engle in one week (2) Hypothyroidism ICD Codes: E03.9 - Hypothyroidism, unspecified Status: Chronic Plan: Patient on Anderson thyroid 45 mg daily at home Resuming today TSH on admission within normal limits Will need monitoring by PCP after initiating amiodarone (3) FEN/PPX Status: Chronic Plan: Fluids: NPO for procedure Electrolytes: BMP within normal limits, follow-up tomorrow and replete as needed Nutrition: NPO for procedure GI prophylaxis: Not indicated DVT prophylaxis: SCDs, see plan for anticoag under Afibb (Pete Davenport MD R1) Problem Qualifiers (1) Hypothyroidism: Qualified Codes: E03.9 - Hypothyroidism, unspecified Pete Davenport MD R1 Jul 16, 2017 10:46 Shayy Padilla MD Jul 16, 2017 15:20
--- NOTE | 2017-07-16 11:40 | HHI.DS ---
Discharge Summary Admission Date Jul 13, 2017 at 17:36 Admitting Diagnosis A. fib with RVR (1) Atrial fibrillation with RVR Plan: ICD Codes: I48.91 - Unspecified atrial fibrillation Status: Acute (2) Hypertension ICD Codes: I10 - Essential (primary) hypertension Status: Chronic Brief History 81 y/o F, pmhx of Afibb and ablation 1 year ago, presents after palpitations started yesterday afternoon. Her palpitations have been the worst in the last 24hours, but she started experiencing symptoms a month ago. She can feel her heart beating fast like it is beating out of her chest, nonstop for the last 24hours. Before yesterday, the palpitations would occur approximately 1x/day for 1.5hrs when she laid down to rest either in the afternoon or evening. She also felt excessively fatigued; she has been laying down frequently during the day and has had a lack of energy. She takes her HR with a cuff (and with an shelton on her iphone) when she feels the sx and she has been in the 130s at home. Pt denies any CP. She does feel some SOB but attributes this to activity. Denies any recent sickness; cold or flu. She has been vaccinated. Denies any N/V. Denies any diarrhea, she has had constipation recently but +BM this week. New Years , 30 days ago she went to the [facility] ED for constant palpitations x 24hrs and HR 130s and had a cardioversion (medication failed, and paddles used ) and told her to f/u with . The following month she continued to have sx.This felt similar to her episode 1 year ago that led to an ablation. She has had 4 episodes of palpitations since her last ablation, but these episodes of tachy would go away in 30 minutes. 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 said to come straight here and the plan is for ablation tomorrow. CBC/BMP: 07/16/17 0705 07/16/17 0705 Significant Findings Laboratory Tests Test 07/13/17 15:15 07/13/17 21:04 07/14/17 03:21 07/14/17 08:43 Monocytes (%) (Auto) 9.7 % (0.0-8.0) 10.1 % (0.0-8.0) Estimat Glomerular Filtration Rate 73 ML/MIN (>89) 75 ML/MIN (>89) 83 ML/MIN (>89) Troponin I LESS THAN 0.02 NG/ML LESS THAN 0.02 NG/ML LESS THAN 0.02 NG/ML Aspartate Amino Transf (AST/SGOT) 14 U/L (15-37) Test 07/15/17 08:31 07/16/17 07:05 Estimat Glomerular Filtration Rate 71 ML/MIN (>89) 67 ML/MIN (>89) Red Blood Count 3.68 MIL/MM3 (4.00-5.30) Hematocrit 34.3 % (35.0-46.0) Neutrophils (%) (Auto) 88.0 % (16.0-70.0) Lymphocytes (%) (Auto) 6.3 % (9.0-44.0) Lymphocytes # (Auto) 0.4 TH/MM3 (1.0-4.8) Activated Partial Thromboplast Time 23.0 SEC (24.3-30.1) Random Glucose 123 MG/DL (74-106) PE at Discharge GENERAL: in NAD, no resp distress, nontoxic. HEENT: NCAT, no scleral icterus, no conjunctival injection. MMM. NECK: Supple, no meningeal signs. No obvious JVD. CV: irregularly irregular. No murmurs. CHEST/PULM: CTAB, no crackles, no wheezes. ABD/GI: +BS, soft, nontender, nondistended. EXT: 2+ DP pulses. No edema. No calf tenderness. NEURO: Awake, alert. Normal muscle tone. SKIN: No rashes, no jaundice. PSYCH: Mood and affect are appropriate. Speech fluent. Does not appear to respond to internal stimuli. Hospital Course Patient was admitted for planned ablation after 1-2 day history of worsening palpitations. Patient was sent in by Dr. Engle. Heart rate was in the 130s to 140s on admission. Patient was placed on telemetry and started on a diltiazem drip, which improved heart rate to the 90s. ACS workup was negative with normal EKGs, troponins. Echo showed an ejection fraction 60-65%. Patient had a known history of hypothyroidism, and TSH/free T4 were reassuring on admission. Patient underwent ablation on 07/15. She tolerated the procedure well and stayed in sinus rhythm following the procedure. Patient was resumed on Xarelto postoperatively. Patient was asymptomatic on 07/16 and both the cardiology team and primary team felt patient was safe for discharge. Patient was started on amiodarone, continued diltiazem and discontinued flecainide for rate control. PFTs were ordered as an outpatient after initiation of amiodarone therapy, patient was scheduled to follow-up with cardiology in the near future. Pt Condition on Discharge: Good Discharge Disposition: Discharge Home Discharge Instructions DIET: Follow Instructions for: As Tolerated, No Restrictions Activities you can perform: Regular-No Restrictions Follow up Referrals: Cardiology - 1 Week with Serge Engle MD PCP Follow-up - 2 Weeks New Orders: PFT PRE/POST BRONCH - 1 Week New Medications: Amiodarone (Amiodarone) 200 Mg Tab 200 MG PO DAILY, #30 TAB Continued Medications: Diltiazem CD 24 HR (Diltiazem CD 24 HR) 180 Mg Caper 180 MG PO DAILY, #30 CAP 0 Refills Rivaroxaban (Xarelto) 20 Mg Tab 20 MG PO DAILY for Blood Clot Prevention, TAB 0 Refills Thyroid ([place] Thyroid) 30 Mg Tab 45 MG PO DAILY for Thyroid Supplement, #30 TAB 0 Refills Valacyclovir (Valtrex) 1 Gm Tab 1000 MG PO DAILY for Mgmt Viral Infection, #30 TAB 0 Refills Discontinued Medications: Flecainide (Flecainide) 100 Mg Tab 100 MG PO BID for Regulate Heart Beat, #60 TAB 0 Refills Pete Davenport MD R1 Jul 16, 2017 11:39
--- NOTE | 2017-07-16 15:20 | EKG ---
Date Performed: 07/15/2017 Time Performed: 19:31:59 PTAGE: 81 years EKG: ATRIAL FIBRILLATION WITH RAPID VENTRICULAR RESPONSE LOW QRS VOLTAGE IN EXTREMITY LEADS ST D EVIATION AND MODERATE T-WAVE ABNORMALITY, CONSIDER INFERIOR ISCHEMIA ABNORMAL ECG Compared to PREVIOUS TRACING , ventricular response to the atrial fibrillation is much more rapid. ST -T change is more prominent. PREVIOUS TRACIN07/14/2017 03.23 DOCTOR: Renny Chandra Interpretating Date/Time 07/16/2017 15:18:06
--- NOTE | 2017-07-16 15:20 | EKG ---
Date Performed: 07/16/2017 Time Performed: 05:05:48 PTAGE: 81 years EKG: Sinus rhythm Normal ECG Compared to PREVIOUS TRACING , atrial fibrillation has converted to sinus rhythm. ST-T changes have i mproved. PREVIOUS TRACIN07/15/2017 19.31 DOCTOR: Renny Chandra Interpretating Date/Time 07/16/2017 15:18:53
--- NOTE | 2017-07-26 10:48 | ECHRPT ---
Indication: a fib CONCLUSIONS Very limited study. Normal left ventricular size. The left ventricular systolic function appears lo w normal with an estimated ejection fraction of 50%. The study is inadequate to assess regional wall motion. Moderate mitral annular calcification. The aortic valve is not well visualized. Structurally normal tricuspid valve. There is trace tricuspid valve regurgitation. BP: / HR: Rhythm: Technical Quality: Medications Complications Proc. Components FINDINGS LEFT VENTRICLE Very limited study. Normal left ventricular size. The left ventricular systolic function appears lo w normal with an estimated ejection fraction of 50%. The study is inadequate to assess regional wall motion. RIGHT VENTRICLE Normal right ventricular size and systolic function. LEFT ATRIUM The left atrial size is normal. RIGHT ATRIUM The right atrial size is normal. MITRAL VALVE Moderate mitral annular calcification. AORTIC VALVE The aortic valve is not well visualized. TRICUSPID VALVE Structurally normal tricuspid valve. There is trace tricuspid valve regurgitation. VESSELS The pulmonary valve is not well visualized. PERICADIUM No pericardial effusion. Bro Murdock MD (Electronically Signed) Final Date:26 July 2017 10:47
--- NOTE | 2017-08-03 10:00 | PD.CARD ---
Atrial Fibrillation Ablation PROCEDURE DATE: Jul 15, 2017 PROCEDURES PERFORMED: 1. Electrophysiology study on Isuprel infusion 2. CS cannulation 3. 3-D mapping 4. Transseptal approach 5. Right and left heart catheterization 6. Intracardiac echo 7. Radiofrequency ablation of atrial fibrillation 8. Pulmonary vein isolation 9. Posterior wall ablation 10. Mitral valve isolation 11. Mitral line creation 12. Left atrial tachycardia ablation 13. Roof line creation 14. Floor line creation 15. Anterior wall ablation 16. Cardioversion INDICATIONS FOR THE PROCEDURE Ms. Pierre is a 81-year-old female with atrial fibrillation , on anticoagulation, very symptomatic, referred for electrophysiology study and ablation. The risks, the nature and the benefits of the procedure were clearly stated to her. The risks include pneumothorax, cardiac perforation, stroke, need for open heart surgery and even . The patient understood and agreed to proceed. DESCRIPTION OF THE PROCEDURE IN DETAIL As written informed consent was obtained prior to esophageal echocardiogram, the patient was kept on the table where she was prepped and draped in the usual sterile fashion. Conscious sedation was initiated and maintained throughout the procedure by the anesthesiologist. Once sedation was verified, the right and left inguinal areas were anesthetized with 2% Xylocaine. Using modified Seldinger technique, the left femoral vein was cannulated on three occasions, three guidewires were advanced. Over the wire a 6, 7 and a 10-Guamanian Hemaquet were advanced. Then the left femoral artery was cannulated on one occasion, one guidewire was advanced. Over the wire a 4-Gu[place]ian Hemaquet was advanced. Then the right femoral vein was cannulated on one occasion, one guidewire was advanced. Over the wire a 8-Gu[place]ian Hemaquet was advanced. Then under fluoroscopic guidance through the 6 and 7-Guamanian Hemaquet, two 5-Guamanian Adelita curved quadripolar electrophysiology catheters were advanced and placed around the His as well as coronary sinus. Basic interval was measured. The patient was in atrial fibrillation. Through the 10-Gu[place]ian Hemaquet, a Cord[employer] Sullivan AcuNav intracardiac echo catheter was advanced and placed at the right atrium. Multiple view was obtained. There was no pericardial effusion, pulmonary vein was seen, atrial septal was visualized. Then the 8-Gu[place]ian Hemaquet in the right femoral vein was exchanged for Agilis transseptal sheath that was placed all the way to the superior vena cava. Through the sheath a Keshia needle was advanced, then the sheath, the dilator and the needle were progressed until foci engaged. Once engaged, the needle was advanced. RF was delivered for 2 seconds. I was able to cross into the left atrium. Once the needle crossed, the dilator was advanced. Once the dilator crossed, the sheath was advanced. Once the sheath crossed, the dilator and the needle were removed. At this point I did flood the system and fluid movement was seen in the left atrium the indicates the sheath is in good position. The patient already received 10,000 units of heparin. The goal is to keep an ACT around 350 during ablation. Then through the sheath a [place] 20 pulse circumferential catheter was advanced. Using [employer] endocardial solution mapping system, a two-dimensional configuration of the left atrium was obtained. Points were taken at the left superior and inferior veins, right superior and inferior veins, mitral valve, and appendages. Then through the sheath a [place] TactiCath 65cm 3.5mm irrigated tipped mapping and radiofrequency ablation catheter was advanced. Esophageal probe was placed temperature monitoring during ablation. When it increased to 0.5 degrees Celsius above baseline, I moved to a different area of the atrium. First I did isolate the left superior and inferior vein. I did make a big capitan grande band around the veins. Posterior was ablated. Then a roof line was created, a floor line was created, a mitral line was isolated, then the mitral valve was isolated. At that point the patient was in left atrial tachycardia. I did create a line from the floor to the roof area, passing by the left atrial appendage. Then the right superior and inferior veins were isolated. The left atrial appendage was isolated. I did remap the atrium. There is no significant signal in the atrium. At this point I decided to proceed with cardioversion. A 200 sync biphasic joule was delivered that converted the patient into sinus rhythm. At that point I did advance the circumferential catheter again into the vein. There was no signal into the vein, pacing from the vein showed no conduction to the atrium. Isuprel infusion was initiated at 20 mcg for over 10 minutes. No tachyarrhythmia was induced, post Isuprel no tachyarrhythmia was induced. At that point the procedure was complete. All catheters were removed , atrial septal sheath was exchanged for 9-Guamanian Hemaquet, intracardiac echo showed no pericardial effusion. There is still good flow in the pulmonary vein. The patient is going to be transferred to the recovery room. No incident report. The patient tolerated the procedure. Blood loss was minimal. FINDINGS 1. Electrocardiogram: At baseline the patient was in atrial fibrillation, post procedure the patient was in sinus rhythm. 2. Basic interval: Base cycle length was around 620ms. Post ablation she was around 990 milliseconds. 3. Tachyarrhythmia: Atrial fibrillation was mapped and ablated. Atrial tachycardia was ablated. The ablation was successful. CONCLUSION Successful electrophysiology study, mapping, radiofrequency ablation of atrial fibrillation, left atrial tachycardia, pulmonary vein isolation, posterior ablation, mitral valve isolation, mitral line creation, roof line creation, floor line creation, left atrial appendage isolation, left atrial tachycardia, and cardioversion. COMMENTS AND RECOMMENDATIONS The patient is going to be transferred to the telemetry unit. Will be observed and when stable can be discharged home. Serge Engle MD Aug 03, 2017 10:00
== END 2017-07-16 11:50 | disposition home or self-care (01) | DRG 274 ==
LOC: NEPE 14:50 → NEDA 17:36 → HCIS 18:40
PROVIDERS: ADMIT Family Medicine; ATTEND Family Medicine
PROC: 02583ZZ Destruction of Conduction Mechanism, Percutaneous Approach (ICD-10-PCS; 2017-07-15)
PROC: 4A023FZ Measurement of Cardiac Rhythm, Percutaneous Approach (ICD-10-PCS; 2017-07-15)
PROC: 4A0234Z Measurement of Cardiac Electrical Activity, Percutaneous Approach (ICD-10-PCS; 2017-07-15)
PROC: 02K83ZZ Map Conduction Mechanism, Percutaneous Approach (ICD-10-PCS; 2017-07-15)
PROC: 5A2204Z Restoration of Cardiac Rhythm, Single (ICD-10-PCS; 2017-07-15)
PROC: 4A023N8 Measurement of Cardiac Sampling and Pressure, Bilateral, Percutaneous Approach (ICD-10-PCS; 2017-07-15)
PROC: 02573ZK Destruction of Left Atrial Appendage, Percutaneous Approach (ICD-10-PCS; principal; 2017-07-15 18:30)
DX: I48.2 Chronic atrial fibrillation (principal); I10 Essential (primary) hypertension; R73.03 Prediabetes; E03.9 Hypothyroidism, unspecified; Z79.01 Long term (current) use of anticoagulants; I47.1 Supraventricular tachycardia
CPT/HCPCS: 71045; 80048; 80053; 82550; 82948; 83735; 83880; 84439; 84443; 84484; 85025; 85027; 85610; 85730; 93005; 93306; 93312; 93320; 93325; 96365; 96375; J0282; J1100; J1644; J1650; J1940; J1956; J2270; J2370; J2405; J2710; J2720; J3010; J7050

== ENCOUNTER 2017-07-16 20:39 | Inpatient (IN) | payer MEDICARE ==
[~2017-07-16] VITALS: Ht 165.1 cm; Wt 57.7 kg
[~2017-07-16 20:39] MED LIST changes: +AMIO200T PO; -BACT800T5 PO
[2017-07-16 20:42] VITALS: BP 204/84; PULSE 91; RESP 18; TEMP 97.9; O2SAT 99
--- NOTE | 2017-07-16 21:03 | PD ---
HPI Chief Complaint: Edema Time Seen by Provider: 20:53 Travel History International Travel<30 days: No Contact w/Intl Traveler<30days: No Traveled to known affect area: No History of Present Illness HPI 81-year-old female presents to the emergency department for evaluation of right arm erythema and swelling that started today. Patient was discharged this morning from [facility] after being admitted for A. fib with RVR. She had cardiac ablation done this morning it was discharged after. She states after arriving home, she noticed increasing swelling, redness, pain to the right arm. She denies any fevers or other symptoms at this time. Patient states pain is 8/10, aching and throbbing without radiation. Moderate severity. No exacerbating or alleviating factors. PFSH Past Medical History Atrial Fibrillation: Yes Anxiety: Yes Heart Rhythm Problems: Yes Cancer: No Cardiovascular Problems: Yes High Cholesterol: No Diabetes: No Diminished Hearing: No Endocrine: Yes Gastrointestinal Disorders: Yes Genitourinary: No Hypertension: Yes Immune Disorder: No Musculoskeletal: No Neurologic: No Psychiatric: Yes Reproductive: No Respiratory: No Immunizations Current: Yes Thyroid Disease: Yes Tetanus Vaccination: < 5 Years Influenza Vaccination: Yes Past Surgical History Abdominal Surgery: Yes (gallbladder ) Cardiac Surgery: Yes (ablation ) Section: Yes (x3) Cholecystectomy: Yes Ear Surgery: No Endocrine Surgery: No Eye Surgery: Yes (cornea transplant ) Genitourinary Surgery: No Gynecologic Surgery: Yes (c secton ) Oral Surgery: No Thoracic Surgery: No Other Surgery: Yes (ablasion, BREAST IMPLANTS) Social History Alcohol Use: Yes (wine daily ) Tobacco Use: No Substance Use: No Allergies-Medications (Allergen,Severity, Reaction): Coded Allergies: acetaminophen (Verified Allergy, Unknown, 07/16/17) albuterol (Verified Allergy, Unknown, 07/16/17) oxycodone (Verified Allergy, Unknown, 07/16/17) Reported Meds & Prescriptions Reported Meds & Active Scripts Active Amiodarone (Amiodarone HCl) 200 Mg Tab 200 Mg PO DAILY Reported Valtrex (Valacyclovir HCl) 1 Gm Tab 1,000 Mg PO DAILY [place] Thyroid (Thyroid) 30 Mg Tab 45 Mg PO DAILY Xarelto (Rivaroxaban) 20 Mg Tab 20 Mg PO DAILY Diltiazem CD 24 HR 180 Mg Caper 180 Mg PO DAILY Review of Systems Except as stated in HPI: all other systems reviewed are Neg Physical Exam Narrative GENERAL: Well-nourished, well-developed female patient, ambulatory. Afebrile. SKIN: Focused skin assessment warm/dry. Patient has erythema, warmth, swelling from right wrist to the right antecubital region. HEAD: Normocephalic. Atraumatic. EYES: No scleral icterus. No injection or drainage. NECK: Supple, trachea midline. No JVD or lymphadenopathy. CARDIOVASCULAR: Regular rate and rhythm without murmurs, gallops, or rubs. RESPIRATORY: Breath sounds equal bilaterally. No accessory muscle use. Lungs sounds are clear to auscultation. GASTROINTESTINAL: Abdomen soft, non-tender, nondistended. MUSCULOSKELETAL: No cyanosis. BACK: Nontender without obvious deformity. No CVA tenderness. Data Data Last Documented VS Vital Signs Date Time Temp Pulse Resp B/P (MAP) Pulse Ox O2 Delivery O2 Flow Rate FiO2 07/16/17 21:08 20 99 Room Air 07/16/17 20:42 97.9 91 Orders Orders Complete Blood Count With Diff (07/16/17 20:59) Comprehensive Metabolic Panel (07/16/17 20:59) Lactic Acid Sepsis Protocol (07/16/17 20:59) Blood Culture (07/16/17 20:59) Ecg Monitoring (07/16/17 20:59) Iv Access Insert/Monitor (07/16/17 20:59) Oximetry (07/16/17 20:59) Us Arm Venous Doppler (07/16/17 ) Act Partial Throm Time (Ptt) (07/16/17 21:03) Prothrombin Time / Inr (Pt) (07/16/17 21:03) Morphine Inj (Morphine Inj) (07/16/17 21:15) Ondansetron Inj (Zofran Inj) (07/16/17 21:15) Vancomycin Inj (Vancomycin Inj) (07/16/17 21:30) Admit Order (Ed Use Only) (07/16/17 22:28) Labs Laboratory Tests Test 07/16/17 21:00 07/16/17 21:15 Lactic Acid Level 1.6 mmol/L White Blood Count 10.8 TH/MM3 Red Blood Count 3.79 MIL/MM3 Hemoglobin 12.0 GM/DL Hematocrit 35.1 % Mean Corpuscular Volume 92.6 FL Mean Corpuscular Hemoglobin 31.7 PG Mean Corpuscular Hemoglobin Concent 34.3 % Red Cell Distribution Width 14.1 % Platelet Count 183 TH/MM3 Mean Platelet Volume 8.8 FL Neutrophils (%) (Auto) 79.2 % Lymphocytes (%) (Auto) 13.9 % Monocytes (%) (Auto) 6.2 % Eosinophils (%) (Auto) 0.4 % Basophils (%) (Auto) 0.3 % Neutrophils # (Auto) 8.5 TH/MM3 Lymphocytes # (Auto) 1.5 TH/MM3 Monocytes # (Auto) 0.7 TH/MM3 Eosinophils # (Auto) 0.0 TH/MM3 Basophils # (Auto) 0.0 TH/MM3 CBC Comment DIFF FINAL Differential Comment Prothrombin Time 12.3 SEC Prothromb Time International Ratio 1.2 RATIO Activated Partial Thromboplast Time 29.4 SEC Blood Urea Nitrogen 17 MG/DL Creatinine 0.89 MG/DL Random Glucose 104 MG/DL Total Protein 6.8 GM/DL Albumin 3.6 GM/DL Calcium Level 9.2 MG/DL Alkaline Phosphatase 72 U/L Aspartate Amino Transf (AST/SGOT) 43 U/L Alanine Aminotransferase (ALT/SGPT) 31 U/L Total Bilirubin 0.7 MG/DL Sodium Level 134 MEQ/L Potassium Level 3.3 MEQ/L Chloride Level 102 MEQ/L Carbon Dioxide Level 24.5 MEQ/L Anion Gap 8 MEQ/L Estimat Glomerular Filtration Rate 61 ML/MIN MDM Medical Decision Making Medical Screen Exam Complete: Yes Emergency Medical Condition: Yes Medical Record Reviewed: Yes Differential Diagnosis superficial thrombophlebitis vs. DVT vs. cellulitis Narrative Course 81-year-old female presents to the emergency department for evaluation of increasing swelling, erythema, warmth of right arm after being discharged this morning. She did have an IV to the right wrist. IV access established. CBC, CMP, PTT, PT/INR, lactic acid, blood cultures x 2 are ordered and pending. Venous Doppler US of the right arm is ordered and pending. CBC shows no acute abnormality. CMP shows hypokalemia at 3.3, no acute abnormalities. Lactic acid is 1.6. Coags show no acute abnormality. US shows thrombus within the cephalic vein. Patient is given vancomycin 1 g IV. Residents are paged for admission. Diagnosis Primary Impression: Superficial thrombophlebitis Qualified Codes: I80.8 - Phlebitis and thrombophlebitis of other sites Additional Impression: Cellulitis Qualified Codes: L03.113 - Cellulitis of right upper limb Admitting Information Admitting Physician Requests: Dalila Mcdaniel Jul 16, 2017 21:03
[2017-07-16 21:08] VITALS: RESP 20; O2SAT 99
[2017-07-16] MEDS ORDERED: ONDANSETRON HCL 4 MG/2 ML VIAL IV PUSH ONE (21:15)
[2017-07-16] MEDS ORDERED: MORPHINE SULFATE 2 MG/ML INJ IV PUSH ONE (21:15)
[2017-07-16] MEDS ORDERED: VANCOMYCIN INJ 1,000 MG in SODIUM CHLOR 0.9% 250 ML INJ 250 ML IV ONE (21:30)
[2017-07-16 21:39] LABS: AUTOMATED NEUTROPHIL # 8.5 TH/MM3 (1.8-7.7); BASOPHIL % 0.3 % (0.0-2.0); EOSINOPHIL % 0.4 % (0.0-4.0); HEMATOCRIT 35.1 % (35.0-46.0); LYMPH % 13.9 % (9.0-44.0); LYMPHOCYTE # 1.5 TH/MM3 (1.0-4.8); MEAN CELL VOLUME 92.6 FL (80.0-100.0); MEAN CORPUSCULAR HEMOGLOBIN 31.7 PG (27.0-34.0); MEAN CORPUSCULAR HGB CONC 34.3 % (32.0-36.0); MEAN PLATELET VOLUME 8.8 FL (7.0-11.0); MONO % 6.2 % (0.0-8.0); MONOCYTE # 0.7 TH/MM3 (0-0.9); NEUT % 79.2 % (16.0-70.0); PLATELET COUNT 183 TH/MM3 (150-450); RED BLOOD COUNT 3.79 MIL/MM3 (4.00-5.30); RED CELL DISTRIBUTION WIDTH 14.1 % (11.6-17.2); WHITE BLOOD COUNT 10.8 TH/MM3 (4.0-11.0)
[2017-07-16 21:50] LABS: INTERNATIONAL NORMALIZED RATIO 1.2 RATIO; PROTHROMBIN TIME - PATIENT 12.3 SEC (9.8-11.6)
--- NOTE | 2017-07-16 21:51 | RADRPT ---
EXAM DATE/TIME: 07/16/2017 21:17 [facility] COMPARISON: No previous studies available for comparison. INDICATIONS : Right arm swelling. MEDICAL HISTORY : Hypertension. Hypothyroidism. Atrial fibrillation. Anxiety. SURGICAL HISTORY : Cholecystectomy. section. Cornea transplant. Cardiac ablation. Wrist and ankle surgery. Br east implants. ENCOUNTER: Initial ACUITY: 2 day PAIN SCORE: 8/10 LOCATION: Right arm. FINDINGS: There is spontaneous flow documented in the brachial, basilic, axillary, and subclavian veins. Ther e is however occlusive thrombus within the cephalic vein. CONCLUSION: There is thrombus within the cephalic vein. Amber Vallecillo MD on July 16, 2017 at 21:48 Board Certified Radiologist. This report was verified electronically.
[2017-07-16 21:54] LABS: ALBUMIN 3.6 GM/DL (3.4-5.0); AST (GOT) 43 U/L (15-37); BICARBONATE 24.5 MEQ/L (21.0-32.0); BLOOD UREA NITROGEN 17 MG/DL (7-18); CALCIUM 9.2 MG/DL (8.5-10.1); CHLORIDE 102 MEQ/L (98-107); CREATININE 0.89 MG/DL (0.50-1.00); GLOMERULAR FILTRATION RATE 61 ML/MIN (>89); GLUCOSE,RANDOM 104 MG/DL (74-106); SODIUM (NA) 134 MEQ/L (136-145)
[2017-07-16 21:59] LABS: ALKALINE PHOSPHATASE 72 U/L (45-117); ALT (GPT) 31 U/L (10-53); TOTAL BILIRUBIN ADULT 0.7 MG/DL (0.2-1.0); TOTAL PROTEIN 6.8 GM/DL (6.4-8.2)
--- NOTE | 2017-07-16 22:44 | HHI.HP ---
HPI Service Family Medicine Primary Care Physician Sam Love MD Admission Diagnosis cellulitis right arm; superficial thrombophlebitis right arm Diagnoses: Chief Complaint: pain in right arm International Travel<30 Days: No Contact w/Intl Traveler<30days: No Known Affected Area: No History of Present Illness Ms Pierre is an 81YO female w/PMHx of HTN, thyroid disease, prediabetes and chronic Afib discharged today s/p cardiac ablation for AFib RVR/SVT who presents with pain, swelling and erythema of right arm that began after arriving home today. Pain and swelling began about 3 hours after getting home. She had an IV in her right arm for 3 days during hospitalization. Pt tried ice pack at home and it didn't relieve pain or swelling. Pain is described as 5/10 on pain scale without touching it; but 8/10 to the touch. Pain is achy and has progressively moved up the right arm since first onset today. Fingers of right hand are a little tingly when rubbing fingers together, but there is no loss of ROM due to swelling. Inciting lesion appears to be at site of IV on medial aspect just proximal to the right wrist. Pt denies CP, SOB, N/V/D, DVT pain in legs, fevers or chills. Review of Systems Constitutional: COMPLAINS OF: Dizziness (lightheaded from hospitlization today) , DENIES: Fever, Chills Eyes: DENIES: Eye pain, Vision loss, Double Vision Ears, nose, mouth, throat: DENIES: Hearing loss, Vertigo, Oral lesions, Throat pain, Running Nose Respiratory: DENIES: Cough, Sputum production, Shortness of breath Cardiovascular: DENIES: Chest pain, Palpitations, Syncope Gastrointestinal: COMPLAINS OF: Constipation, DENIES: Black stools, Bloody stools, Diarrhea, Nausea, Vomiting Integumentary: DENIES: Pruritus, Rash Hematologic/lymphatic: COMPLAINS OF: Bruising, DENIES: Lymphadenopathy Neurologic: COMPLAINS OF: Paresthesias (tingling in right hand when rubbing fingers together), DENIES: Headache, Localized weakness Past Family Social History Past Medical History Chronic AFib s/p ablation today and ablation 1 year ago HTN DM type 2 Thyroid disease unspecified Past Surgical History Cornea transplant CS x3 Cholecystectomy Wrist and ankle repairs Reported Medications Reported Meds & Active Scripts Active Amiodarone (Amiodarone HCl) 200 Mg Tab 200 Mg PO DAILY Reported Valtrex (Valacyclovir HCl) 1 Gm Tab 1,000 Mg PO DAILY Cidra Thyroid (Thyroid) 30 Mg Tab 45 Mg PO DAILY Xarelto (Rivaroxaban) 20 Mg Tab 20 Mg PO DAILY Diltiazem CD 24 HR 180 Mg Caper 180 Mg PO DAILY Allergies: Coded Allergies: acetaminophen (Verified Allergy, Unknown, 07/16/17) albuterol (Verified Allergy, Unknown, 07/16/17) oxycodone (Verified Allergy, Unknown, 07/16/17) Active Ordered Medications Current Medications Medications (Trade) Dose Ordered Sig/Ambar Route Start Time Stop Time Status Last Admin (NS Flush) 2 ml BID IV FLUSH 07/17/17 09:00 UNV (NS Flush) 2 ml UNSCH PRN IV FLUSH 07/16/17 23:15 UNV Sodium Chloride 1,000 ml @ 100 mls/hr Q10H IV 07/16/17 23:07 UNV Pharmacy Profile Note 0 ml @ 0 mls/hr UNSCH XX 07/16/17 23:15 UNV Vancomycin HCl 1000 mg/Sodium Chloride 250 ml @ 250 mls/hr Q12H IV 07/17/17 10:00 UNV (Cordarone) 200 mg DAILY PO 07/17/17 09:00 UNV (Cardizem Cd) 180 mg DAILY PO 07/17/17 09:00 UNV (Xarelto) 20 mg DAILY PO 07/17/17 09:00 UNV (Cidra Thyroid) 45 mg DAILY PO 07/17/17 09:00 UNV (Valtrex) 1,000 mg DAILY PO 07/17/17 09:00 UNV (Motrin) 600 mg Q8HR PO 07/16/17 23:15 UNV (Morphine Inj) 2 mg Q3H PRN IV PUSH 07/16/17 23:15 UNV (Vasotec Inj) 1.25 mg Q6H PRN IV PUSH 07/16/17 23:15 UNV (Miralax) 17 gm DAILY PO 07/17/17 09:00 UNV (Laura-Colace) 1 tab BID PO 07/17/17 09:00 UNV (KCl) 30 meq ONCE ONCE PO 07/16/17 23:30 07/16/17 23:31 UNV Family History Father - , CAD at 58 Mother - , CAD at 65 Social History EtOH - 2 glasses of wine per night Tobacco - none Drugs - none lives with of 22 years in [place] Physical Exam Vital Signs Vital Signs Date Time Temp Pulse Resp B/P (MAP) Pulse Ox O2 Delivery O2 Flow Rate FiO2 07/16/17 21:08 20 99 Room Air 07/16/17 21:06 99 Room Air 07/16/17 20:42 97.9 91 18 204/84 (124) 99 Room Air Physical Exam GENERAL: This is a well-nourished, well-developed elderly woman who looks younger than stated age in no apparent distress. SKIN: No rashes. There is erythema, warmth and mild swelling with mild cellulitis of the right forearm extending distally from the right wrist to just below the right elbow (area marked). This area is TTP. There is a large ecchymosis over the left femoral crease of LLE extending to the inner left thigh distally and to the left suprapubic area proximally from the ablation procedure this morning. Cool and dry. HEAD: Atraumatic. Normocephalic. EYES: Pupils equal round and reactive with miosis. Extraocular motions intact. No scleral icterus. No injection or drainage. ENT: Nose without bleeding or drainage. Throat without erythema, tonsillar hypertrophy or exudate. Uvula midline. Airway patent. NECK: Trachea midline. No JVD or lymphadenopathy. Supple, nontender, no meningeal signs. CARDIOVASCULAR: Regular rate and rhythm without murmur, gallop, or rub. RESPIRATORY: Breath sounds equal bilaterally. No wheezes, rales, or rhonchi; however, there are mild bilateral crackles. GASTROINTESTINAL: Abdomen soft, non-tender, nondistended. No hepato-splenomegaly , or palpable masses. No guarding. MUSCULOSKELETAL: Extremities without clubbing, cyanosis, or edema. No joint tenderness, effusion, or edema noted. No calf tenderness. Negative Homans sign bilaterally. NEUROLOGICAL: Alert and oriented x3. Cranial nerves II through XII intact. Motor and sensory grossly within normal limits. Five out of 5 muscle strength in all muscle groups. Normal speech. Laboratory Laboratory Tests Test 07/16/17 21:00 07/16/17 21:15 Lactic Acid Level 1.6 White Blood Count 10.8 Red Blood Count 3.79 Hemoglobin 12.0 Hematocrit 35.1 Mean Corpuscular Volume 92.6 Mean Corpuscular Hemoglobin 31.7 Mean Corpuscular Hemoglobin Concent 34.3 Red Cell Distribution Width 14.1 Platelet Count 183 Mean Platelet Volume 8.8 Neutrophils (%) (Auto) 79.2 Lymphocytes (%) (Auto) 13.9 Monocytes (%) (Auto) 6.2 Eosinophils (%) (Auto) 0.4 Basophils (%) (Auto) 0.3 Neutrophils # (Auto) 8.5 Lymphocytes # (Auto) 1.5 Monocytes # (Auto) 0.7 Eosinophils # (Auto) 0.0 Basophils # (Auto) 0.0 CBC Comment DIFF FINAL Differential Comment Prothrombin Time 12.3 Prothromb Time International Ratio 1.2 Activated Partial Thromboplast Time 29.4 Blood Urea Nitrogen 17 Creatinine 0.89 Random Glucose 104 Total Protein 6.8 Albumin 3.6 Calcium Level 9.2 Alkaline Phosphatase 72 Aspartate Amino Transf (AST/SGOT) 43 Alanine Aminotransferase (ALT/SGPT) 31 Total Bilirubin 0.7 Sodium Level 134 Potassium Level 3.3 Chloride Level 102 Carbon Dioxide Level 24.5 Anion Gap 8 Estimat Glomerular Filtration Rate 61 Date/Time Source Procedure Growth Status 07/16/17 21:15 Blood Peripheral Aerobic Blood Culture Pending Received 07/16/17 21:15 Blood Peripheral Anaerobic Blood Culture Pending Received Result Diagram: 07/16/[id number]/16/[id number] Imaging Last Impressions Upper Extremity Ultrasound 07/16/17 0000 Signed Impressions: Service Date/Time: Sunday, July 16, 2017 21:17 - CONCLUSION: There is thrombus within the cephalic vein. Amber Vallecillo MD Septic Shock Reassessment Septic shock perfusion: reassessment completed Caprini VTE Risk Assessment Caprini VTE Risk Assessment: Mod/High Risk (score >= 2) VTE Pharm Contraindication: s/p cardiac ablation today; continue home xarelto Caprini Risk Assessment Model Point Value = 1 Point Value = 2 Point Value = 3 Point Value = 5 Age 41-60 Minor surgery BMI > 25 kg/m2 Swollen legs Varicose veins or History of unexplained or recurrent spontaneous Oral contraceptives or hormone replacement Sepsis (< 1 month) Serious lung disease, including pneumonia (< 1 month) Abnormal pulmonary function Acute myocardial infarction Congestive heart failure (< 1 month) History of inflammatory bowel disease Medical patient at bed rest Age 61-74 Arthroscopic surgery Major open surgery (> 45 min) Laparoscopic surgery (> 45 min) Malignancy Confined to bed (> 72 hours) Immobilizing plaster cast Central venous access Age >= 75 History of VTE Family history of VTE Factor V Leiden Prothrombin [id number] Lupus anticoagulant Anticardiolipin antibodies Elevated serum homocysteine Heparin-induced thrombocytopenia Other congenital or acquired thrombophilia Stroke (< 1 month) Elective arthroplasty Hip, pelvis, or leg fracture Acute spinal cord injury (< 1 month) Prophylaxis Regimen Total Risk Factor Score Risk Level Prophylaxis Regimen 0-1 Low Early ambulation 2 Moderate Order ONE of the following: *Sequential Compression Device (SCD) *Heparin 5000 units SQ BID 3-4 Higher Order ONE of the following medications: *Heparin 5000 units SQ TID *Enoxaparin/Lovenox 40 mg SQ daily (WT < 150 kg, CrCl > 30 mL/min) *Enoxaparin/Lovenox 30 mg SQ daily (WT < 150 kg, CrCl > 10-29 mL/min) *Enoxaparin/Lovenox 30 mg SQ BID (WT < 150 kg, CrCl > 30 mL/min) AND/OR *Sequential Compression Device (SCD) 5 or more Highest Order ONE of the following medications: *Heparin 5000 units SQ TID (Preferred with Epidurals) *Enoxaparin/Lovenox 40 mg SQ daily (WT < 150 kg, CrCl > 30 mL/min) *Enoxaparin/Lovenox 30 mg SQ daily (WT < 150 kg, CrCl > 10-29 mL/min) *Enoxaparin/Lovenox 30 mg SQ BID (WT < 150 kg, CrCl > 30 mL/min) AND *Sequential Compression Device (SCD) Assessment and Plan Assessment and Plan 81YO female with PMHx HTN, thyroid disease, prediabetes and chronic Afib s/p ablation x2 (last one today) in [facility] presents with mild cellulitis of right lower arm x1 day several hours after discharge from for cardiac ablation, and imaging showing superficial thrombus in right cephalic vein. Additionally, pt with elevated BP to 204/84 (likely 2/2 pain), mild hyponatremia 134, hypokalemia 3.3, and constipation. Pt afebrile. Impression: Upper Extremity US showing thrombus in right cephalic vein Exam with erythema, swelling, cellulitis of right lower arm below elbow CBC w/WBC 10.8 and 79.2% neutrophils CMP w/Na 134, K+ 3.3, AST slightly elevated at 43; others wnl (Cr 0.89) Troponin 1.95 CXR pending PLAN: 1. Cellulitis of RUE with thrombus in right cephalic vein viewed on US -Vancomycin 1g IV q12h -Pharmacy Vanc consult -NS IVF @100ml/hr -Ibuprofen 600mg q8h for pain -Morphine 2mg IV q3h breakthru pain -Warm compresses 2. HTN and AFib s/p ablation: goal BP <160/90 -Troponin 1.95 - discussed with Cardiology (Georgina); likely 2/2 ablation today and flu-like sxs are common post-ablation -EKG -Continue amiodarone 200mg PO daily -Continue Diltiazem 180mg PO daily -Vasotec 1.25mg IV q6h PRN SBP>180 and/or DBP>100 -ASA 162mg PO daily 3. Dizziness - considering ablation as possible etiology per discussion with Cardiology -Orthostatic vitals -IVF as above 4. Hyponatremia and Hypokalemia -IVF repletion for hyponatremia; monitor with daily labs -KCl 30meq PO once; monitor with daily labs 5. Thyroid disease -Continue home Armor thyroid 45mg daily 6. FEN/GI/PPx -Fluids: IVF as above -Electrolytes as above; repleting Na+ and K+ -Nutrition: Heart healthy diet -GI: Famotidine 20mg BID PO daily -PPx: Continue home Xarelto 20mg daily Code Status FULL Discussed Condition With Dr Lieberman Problem List: (1) Cellulitis ICD Codes: L03.90 - Cellulitis, unspecified Status: Acute (2) Superficial thrombophlebitis ICD Codes: I80.9 - Phlebitis and thrombophlebitis of unspecified site Status: Acute (3) Hypothyroidism ICD Codes: E03.9 - Hypothyroidism, unspecified Status: Chronic (4) Hypertension ICD Codes: I10 - Essential (primary) hypertension Status: Chronic (5) FEN/PPX Status: Chronic Problem Qualifiers (1) Cellulitis: Qualified Codes: L03.113 - Cellulitis of right upper limb (2) Superficial thrombophlebitis: Qualified Codes: I80.8 - Phlebitis and thrombophlebitis of other sites Eb Rascon MD R1 Jul 16, 2017 22:44
[2017-07-16 22:59] VITALS: BP 145/68; PULSE 75; RESP 20; O2SAT 98
[2017-07-16] MEDS ORDERED: SODIUM CHLORIDE 0.9% FLUSH 10 ML FLUSH IV FLUSH PRN (23:15)
[2017-07-16] MEDS ORDERED: MORPHINE SULFATE 2 MG/ML INJ IV PUSH PRN (23:15)
[2017-07-16] MEDS ORDERED: Vancomycin Consult Pharmacy 1 EA OTHER SCH (23:15)
[2017-07-16] MEDS ORDERED: ENALAPRILAT 1.25 MG/ML VIAL IV PUSH PRN (23:15)
[2017-07-16] MEDS ORDERED: POTASSIUM CHLORIDE 10 MEQ CONTROLLED RELEASE TAB PO ONE (23:30)
[2017-07-16] MEDS: SODIUM CHLOR 0.9% 1000 ML INJ 1,000 ML IV SCH (23:52)
[2017-07-16] MEDS: IBUPROFEN 600 MG TAB PO SCH (23:54)
[2017-07-17] VITALS (26 sets, daily range): BP systolic 122–157; BP diastolic 63–85; PULSE 74–102; RESP 16–20; TEMP 98.1–99.2; O2SAT 90–94
--- NOTE | 2017-07-17 00:16 | RADRPT ---
EXAM DATE/TIME: 07/17/2017 00:01 [facility] COMPARISON: No previous studies available for comparison. INDICATIONS : Right arm swelling and chest pain post Cardiac Ablasion 07/13/2017 MEDICAL HISTORY : A-fib SURGICAL HISTORY : Cardiac Ablasion ENCOUNTER: Initial ACUITY: 1 week PAIN SCORE: 8/10 LOCATION: Bilateral chest FINDINGS: There is mild interstitial prominence. There is no consolidation or effusion. There are degenerative changes of the spine. Aortic calcification is noted. CONCLUSION: Mild diffuse interstitial prominence is noted suggesting mild interstitial edema. Demarco Gallo MD on July 17, 2017 at 0:14 Board Certified Radiologist. This report was verified electronically.
[2017-07-17] MEDS ORDERED: NITROGLYCERIN 0.4 MG SL 25 TABS/BTL SL PRN (01:15)
[2017-07-17] MEDS ORDERED: ASPIRIN 81 MG CHEW TAB PO ONE (01:15)
[2017-07-17] MEDS: TEMAZEPAM 15 MG CAP PO PRN ×2 (01:25→19:45)
[2017-07-17 04:12] LABS: AUTOMATED NEUTROPHIL # 8.7 TH/MM3 (1.8-7.7); BASOPHIL % 0.3 % (0.0-2.0); EOSINOPHIL # 0.1 TH/MM3 (0-0.4); EOSINOPHIL % 0.5 % (0.0-4.0); HEMATOCRIT 32.3 % (35.0-46.0); HEMOGLOBIN 10.9 GM/DL (11.6-15.3); LYMPH % 9.3 % (9.0-44.0); MEAN CELL VOLUME 93.1 FL (80.0-100.0); MEAN CORPUSCULAR HEMOGLOBIN 31.5 PG (27.0-34.0); MEAN CORPUSCULAR HGB CONC 33.8 % (32.0-36.0); MEAN PLATELET VOLUME 8.7 FL (7.0-11.0); MONO % 5.4 % (0.0-8.0); MONOCYTE # 0.6 TH/MM3 (0-0.9); NEUT % 84.5 % (16.0-70.0); PLATELET COUNT 158 TH/MM3 (150-450); RED BLOOD COUNT 3.47 MIL/MM3 (4.00-5.30); RED CELL DISTRIBUTION WIDTH 14.1 % (11.6-17.2); WHITE BLOOD COUNT 10.3 TH/MM3 (4.0-11.0)
[2017-07-17 04:33] LABS: INTERNATIONAL NORMALIZED RATIO 1.1 RATIO; PROTHROMBIN TIME - PATIENT 11.6 SEC (9.8-11.6)
[2017-07-17 04:37] LABS: BICARBONATE 23.5 MEQ/L (21.0-32.0); BLOOD UREA NITROGEN 15 MG/DL (7-18); CALCIUM 8.2 MG/DL (8.5-10.1); CHLORIDE 105 MEQ/L (98-107); CREATININE 0.69 MG/DL (0.50-1.00); GLOMERULAR FILTRATION RATE 82 ML/MIN (>89); GLUCOSE,RANDOM 112 MG/DL (74-106); SODIUM (NA) 135 MEQ/L (136-145)
[2017-07-17 04:39] LABS: TROPONIN I 1.22 NG/ML (0.02-0.05)
[2017-07-17] MEDS: IBUPROFEN 600 MG TAB PO SCH ×3 (05:39→19:59)
[2017-07-17] MEDS: SODIUM CHLORIDE 0.9% FLUSH 10 ML FLUSH IV FLUSH SCH ×2 (09:00→19:46)
[2017-07-17] MEDS: SODIUM CHLOR 0.9% 1000 ML INJ 1,000 ML IV SCH ×2 (09:07→18:26)
[2017-07-17] MEDS ORDERED: VANCOMYCIN INJ 1,000 MG in SODIUM CHLOR 0.9% 250 ML INJ 250 ML IV SCH (10:00)
--- NOTE | 2017-07-17 10:16 | PD.CARD.PN ---
Subjective Subjective Remarks Pt returned to the hospital after being home briefly due to right arm pain/ swelling, also some vague chest tightness, pressure. Objective Medications Current Medications Medications (Trade) Dose Ordered Sig/Ambar Route Start Time Stop Time Status Last Admin (NS Flush) 2 ml BID IV FLUSH 07/17/17 09:00 (NS Flush) 2 ml UNSCH PRN IV FLUSH 07/16/17 23:15 Sodium Chloride 1,000 ml @ 100 mls/hr Q10H IV 07/16/17 23:07 07/16/17 23:52 Pharmacy Profile Note 0 ml @ 0 mls/hr UNSCH OTHER 07/16/17 23:15 (Cordarone) 200 mg DAILY PO 07/17/17 09:00 (Cardizem Cd) 180 mg DAILY PO 07/17/17 09:00 (Xarelto) 20 mg DAILY PO 07/17/17 09:00 (Philipp Thyroid) 45 mg DAILY PO 07/17/17 09:00 (Valtrex) 1,000 mg DAILY PO 07/17/17 09:00 (Motrin) 600 mg Q8HR PO 07/16/17 23:15 07/16/17 23:54 (Morphine Inj) 2 mg Q3H PRN IV PUSH 07/16/17 23:15 (Vasotec Inj) 1.25 mg Q6H PRN IV PUSH 07/16/17 23:15 (Miralax) 17 gm DAILY PO 07/17/17 09:00 (Laura-Colace) 1 tab BID PO 07/17/17 09:00 Vancomycin/Sodium Chloride 200 ml @ 200 mls/hr Q12H IV 07/17/17 11:00 (Restoril) 15 mg HS PRN PO 07/17/17 01:15 07/17/17 01:25 (Pepcid) 20 mg BID PO 07/17/17 09:00 (Nitrostat Sl) 0.4 mg Q5M PRN SL 07/17/17 01:15 Vital Signs / I&O Vital Signs Date Time Temp Pulse Resp B/P (MAP) Pulse Ox O2 Delivery O2 Flow Rate FiO2 07/17/17 08:00 98.5 91 20 157/82 (107) 90 07/17/17 06:00 77 07/17/17 05:00 76 2/4/18 04:00 74 07/17/17 04:00 Nasal Cannula 2.00 07/17/17 04:00 98.1 74 20 122/63 (82) 92 07/17/17 03:00 75 07/17/17 02:00 78 07/17/17 01:00 79 07/17/17 01:00 98.6 79 20 155/77 (103) 92 07/17/17 00:46 07/17/17 00:17 81 20 156/72 (100) 07/17/17 00:16 78 20 144/69 (94) 07/17/17 00:14 75 16 145/65 (91) 07/16/17 22:59 75 20 145/68 (93) 98 Room Air 07/16/17 21:08 20 99 Room Air 07/16/17 21:06 99 Room Air 07/16/17 20:42 97.9 91 18 204/84 (124) 99 Room Air I/O 07/16/17 07/16/17 07/16/17 07/17/17 07/17/17 07/17/17 07:00 15:00 23:00 07:00 15:00 23:00 Intake Total 250 ml 740 ml Output Total 500 ml Balance 250 ml 240 ml Intake Oral 240 ml IV Total 250 ml 500 ml Output Urine Total 500 ml # Bowel Movements 0 Physical Exam GENERAL: This is a well-nourished, well-developed patient, in no apparent distress. CARDIOVASCULAR: Regular rate and rhythm without murmurs, gallops, or rubs. RESPIRATORY: Clear to auscultation. Breath sounds equal bilaterally. No wheezes , rales, or rhonchi. GASTROINTESTINAL: Abdomen soft, non-tender, nondistended. Normal active bowel sounds MUSCULOSKELETAL: Extremities without clubbing, cyanosis, or edema. NEURO: Alert & Oriented x4 to person, place, time, situation. Moves all ext x4 Laboratory Laboratory Tests Test 07/16/17 21:00 07/16/17 21:15 07/17/17 01:09 07/17/17 03:39 Lactic Acid Level 1.6 mmol/L White Blood Count 10.8 TH/MM3 10.3 TH/MM3 Red Blood Count 3.79 MIL/MM3 3.47 MIL/MM3 Hemoglobin 12.0 GM/DL 10.9 GM/DL Hematocrit 35.1 % 32.3 % Mean Corpuscular Volume 92.6 FL 93.1 FL Mean Corpuscular Hemoglobin 31.7 PG 31.5 PG Mean Corpuscular Hemoglobin Concent 34.3 % 33.8 % Red Cell Distribution Width 14.1 % 14.1 % Platelet Count 183 TH/MM3 158 TH/MM3 Mean Platelet Volume 8.8 FL 8.7 FL Neutrophils (%) (Auto) 79.2 % 84.5 % Lymphocytes (%) (Auto) 13.9 % 9.3 % Monocytes (%) (Auto) 6.2 % 5.4 % Eosinophils (%) (Auto) 0.4 % 0.5 % Basophils (%) (Auto) 0.3 % 0.3 % Neutrophils # (Auto) 8.5 TH/MM3 8.7 TH/MM3 Lymphocytes # (Auto) 1.5 TH/MM3 1.0 TH/MM3 Monocytes # (Auto) 0.7 TH/MM3 0.6 TH/MM3 Eosinophils # (Auto) 0.0 TH/MM3 0.1 TH/MM3 Basophils # (Auto) 0.0 TH/MM3 0.0 TH/MM3 CBC Comment DIFF FINAL DIFF FINAL Differential Comment Prothrombin Time 12.3 SEC 11.6 SEC Prothromb Time International Ratio 1.2 RATIO 1.1 RATIO Activated Partial Thromboplast Time 29.4 SEC 28.8 SEC Blood Urea Nitrogen 17 MG/DL 15 MG/DL Creatinine 0.89 MG/DL 0.69 MG/DL Random Glucose 104 MG/DL 112 MG/DL Total Protein 6.8 GM/DL Albumin 3.6 GM/DL Calcium Level 9.2 MG/DL 8.2 MG/DL Alkaline Phosphatase 72 U/L Aspartate Amino Transf (AST/SGOT) 43 U/L Alanine Aminotransferase (ALT/SGPT) 31 U/L Total Bilirubin 0.7 MG/DL Sodium Level 134 MEQ/L 135 MEQ/L Potassium Level 3.3 MEQ/L 4.2 MEQ/L Chloride Level 102 MEQ/L 105 MEQ/L Carbon Dioxide Level 24.5 MEQ/L 23.5 MEQ/L Anion Gap 8 MEQ/L 7 MEQ/L Estimat Glomerular Filtration Rate 61 ML/MIN 82 ML/MIN Troponin I 1.95 NG/ML 1.22 NG/ML B-Type Natriuretic Peptide 42 PG/ML Total Creatine Kinase 156 U/L Creatine Kinase MB 3.8 NG/ML Test 07/17/17 09:35 Imaging Last Impressions Upper Extremity Ultrasound 07/16/17 0000 Signed Impressions: Service Date/Time: Sunday, July 16, 2017 21:17 - CONCLUSION: There is thrombus within the cephalic vein. Amber Vallecillo MD Chest X-Ray 07/16/17 0000 Signed Impressions: Service Date/Time: Monday, July 17, 2017 00:01 - CONCLUSION: Mild diffuse interstitial prominence is noted suggesting mild interstitial edema. Demarco Gallo MD Assessment and Plan Problem List: (1) Troponin level elevated ICD Codes: R74.8 - Abnormal levels of other serum enzymes Plan: most likely from ablation, pt says she hasn't had a stress test in quite some time but has already had caffeine today; will leave her NPO tomorrow in case wishes for a nuclear stress prior to leaving. (2) Atypical chest pain ICD Codes: R07.89 - Other chest pain Plan: mild and most likely from the ablatio itself, but see above. (3) Atrial tachycardia ICD Codes: I47.1 - Supraventricular tachycardia Plan: s/p ablation Assessment and Plan Dr. Engle will return tomorrow to resume care. Clinton Erickson MD Jul 17, 2017 10:16
[2017-07-17 10:33] LABS: MAGNESIUM 1.9 MG/DL (1.5-2.5)
[2017-07-17] MEDS: DOCUSATE SODIUM 50 MG/SENNA 8.6 MG TAB PO SCH ×2 (10:48→19:45)
[2017-07-17] MEDS: DILTIAZEM-CD 180 MG CAP ER PO SCH (10:48)
[2017-07-17] MEDS: AMIODARONE 200 MG TAB PO SCH (10:48)
[2017-07-17] MEDS: FAMOTIDINE 20 MG TAB PO SCH ×2 (10:48→19:44)
[2017-07-17] MEDS: POLYETHYLENE GLYCOL 17 GM PKG PO SCH (10:48)
[2017-07-17] MEDS: RIVAROXABAN 20 MG TAB PO SCH (10:49)
[2017-07-17] MEDS: valACYclovir HCL 500 MG TAB PO SCH (10:49)
[2017-07-17] MEDS: THYROID 30 MG TAB PO SCH (10:50)
[2017-07-17] MEDS ORDERED: VANCOMYCIN 1 GM/200 ML PREMIX IV SCH ×2 (11:00→15:45)
--- NOTE | 2017-07-17 12:57 | EKG ---
Date Performed: 07/17/2017 Time Performed: 02:19:34 PTAGE: 81 years EKG: Sinus rhythm with PAC(s) Low QRS voltages in limb leads Borderline ECG Compared to PREVIOUS TRACING , the PACs are new. PREVIOUS TRACIN07/17/2017 00.31.14 DOCTOR: Renny Chandra Interpretating Date/Time 07/17/2017 12:57:17
--- NOTE | 2017-07-17 12:57 | EKG ---
Date Performed: 07/17/2017 Time Performed: 00:31:14 PTAGE: 81 years EKG: Sinus rhythm NORMAL ECG Compared to PREVIOUS TRACING , patient remains in normal sinus rhythm. PREVIOUS TRACIN07/16/2017 0 5.05.48 DOCTOR: Renny Chandra Interpretating Date/Time 07/17/2017 12:56:24
--- NOTE | 2017-07-17 14:01 | HHI.FPPN ---
Subjective Remarks Khushbu Pierre is an 81yo lady with medical history significant for a fib s/p ablation 07/15/2017 admitted within 24 hours after discharge for pain, swelling, and redness of her right forearm. She had an IV in her right arm during the previous hospitalization. At admission, she was found to have a thrombus of her cephalic vein. For further details, please see resident H&P. This afternoon, residents paged to bedside this afternoon for acute desaturations (86% on room air with minimal exertion); she is requiring 4lpm by nasal cannula. She describes a gradual worsening of SOB and a chest heaviness. Earlier today, she felt her right arm had improved, but now is more red, swollen , and tender this PM. ROS: + Chest heaviness; SOB. Pain in red arm. + cough with deep inspiration. No dizziness, no lightheadedness. PMH/PSxH/SocHx/FamHx: Per resident H&P. Significant for: A fib, s/p ablation 07/15 and 1 year ago and cardioversion ~1 month ago. HTN, DM II. H/O x 3, cornea transplant, cholecystectomy, wrist/ankle repair. Father and mother both of heart disease. Lives with partner locally. No tobacco. 2 glasses of wine/night. No recreational drugs. Objective Vitals Vital Signs Date Time Temp Pulse Resp B/P (MAP) Pulse Ox O2 Delivery O2 Flow Rate FiO2 07/17/17 08:00 98.5 91 20 157/82 (107) 90 07/17/17 06:00 77 07/17/17 05:00 76 07/17/17 04:00 74 07/17/17 04:00 Nasal Cannula 2.00 07/17/17 04:00 98.1 74 20 122/63 (82) 92 07/17/17 03:00 75 07/17/17 02:00 78 07/17/17 01:00 79 07/17/17 01:00 98.6 79 20 155/77 (103) 92 07/17/17 00:46 07/17/17 00:17 81 20 156/72 (100) 07/17/17 00:16 78 20 144/69 (94) 07/17/17 00:14 75 16 145/65 (91) 07/16/17 22:59 75 20 145/68 (93) 98 Room Air 07/16/17 21:08 20 99 Room Air 07/16/17 21:06 99 Room Air 07/16/17 20:42 97.9 91 18 204/84 (124) 99 Room Air I/O 07/16/17 07/16/17 07/16/17 07/17/17 07/17/17 07/17/17 07:00 15:00 23:00 07:00 15:00 23:00 Intake Total 250 ml 740 ml Output Total 500 ml Balance 250 ml 240 ml Intake Oral 240 ml IV Total 250 ml 500 ml Output Urine Total 500 ml # Bowel Movements 0 Result Diagram: 07/17/1733807/17/17338 Objective Remarks GENERAL: in NAD, no resp distress, nontoxic. Sitting comfortably in chair. Talks in complete sentences. HEENT: NCAT, EOMI, no scleral icterus, no conjunctival injection. MMM. No nasal drainage. NECK: Supple, no meningeal signs. CV: RRR, S1 S2. No murmurs. CHEST/PULM: Good air movement. Crackles at bases, R>L. ABD/GI: +BS, soft, nondistended EXT: Right forearm with erythema, tenderness, and increased calor along dorsal aspect, extends from wrist to elbow. Able to wiggle fingers. NEURO: Awake, alert. Normal muscle tone. Grossly nonfocal. SKIN: Right forearm as above. No jaundice. PSYCH: Mood and affect are appropriate. Speech fluent. Does not appear to respond to internal stimuli. A/P Assessment and Plan 81yo lady admitted for R cephalic vein thrombus with possible superimposed cellulitis; now requiring oxygen supplementation to maintain oxygen saturations. Attending Attestation Patient seen, examined, and discussed with resident team. Problem List: (1) Oxygen desaturation ICD Codes: R09.02 - Hypoxemia Status: Acute Plan: Unclear etiology. Consider PE vs ACS vs atelectasis vs fluid overload vs pneumonia. EKG now CTA now Troponin x 1 now. provide one time dose of Lasix. Incentive spirometer. Provide O2 sats as needed to maintain sats >88% Consider ABG if clinically worsening. (2) Chest pressure ICD Codes: R07.89 - Other chest pain Status: Acute Plan: See management as above. Troponins initially elevated at admission, but have been downtrending. Appreciate cardiology; pt will be NPO for possible stress test tomorrow. (3) Cellulitis ICD Codes: L03.90 - Cellulitis, unspecified Status: Acute Plan: -Vancomycin 1g IV q12h 07/16/17 --> -Pharmacy Vanc consult -NS IVF @100ml/hr -Ibuprofen 600mg q8h for pain -Morphine 2mg IV q3h breakthru pain -Warm compresses. (4) Superficial thrombophlebitis ICD Codes: I80.9 - Phlebitis and thrombophlebitis of unspecified site Status: Acute Plan: Thrombus of R cephalic vein seen on US at admission. Pt taking Xarelto - will continue. CTA ordered as above. (5) Status post ablation of atrial fibrillation ICD Codes: Z98.890 - Other specified postprocedural states; Z86.79 - Personal history of other diseases of the circulatory system Status: Acute Plan: Appreciate cardiology. Continue amiodarone, xarelto, cardizem. Currently in sinus rhythm. (6) Hypothyroidism ICD Codes: E03.9 - Hypothyroidism, unspecified Status: Chronic Plan: Continue home thyroid medication. Pt follows with Dr. Barraza as an outpatient. She has recently been placed on amiodarone, and has normal Thyroid function tests during the last admission (7) Hypertension ICD Codes: I10 - Essential (primary) hypertension Status: Chronic Plan: Continue home medication. Continue to monitor. (8) Hypokalemia ICD Codes: E87.6 - Hypokalemia Status: Acute Plan: Mild. Asymptomatic. Replace and monitor with BMP in AM. (9) Hyponatremia ICD Codes: E87.1 - Hypo-osmolality and hyponatremia Status: Acute Plan: Mild. Asymptomatic. Check BMP in AM. Problem Qualifiers (1) Cellulitis: Qualified Codes: L03.113 - Cellulitis of right upper limb (2) Superficial thrombophlebitis: Qualified Codes: I80.8 - Phlebitis and thrombophlebitis of other sites (3) Hypothyroidism: Qualified Codes: E03.9 - Hypothyroidism, unspecified (4) Hypertension: Qualified Codes: I10 - Essential (primary) hypertension Shayy Padilla MD Jul 17, 2017 14:01
[2017-07-17] MEDS ORDERED: FUROSEMIDE 40 MG/4 ML VIAL IV PUSH ONE (14:45)
[2017-07-17] MEDS ORDERED: Vancomycin Consult Pharmacy 1 EA OTHER SCH (14:45)
--- NOTE | 2017-07-17 14:50 | HHI.PR ---
Addendum to Inpatient Note Addendum Reason: Additional Documentation Additional Information S: Resident team paged at 1400 in regards to patient having oxygen desaturation. Patient was attempted to wean off oxygen this morning, but oxygen saturation levels dipped to 90-92% at rest. Dropped even further to the mid to upper 80s on exertion. Patient now requiring 4 L nasal cannula to maintain oxygen saturations. Patient also experiencing chest tightness and a nonproductive cough that is relatively new in onset. Patient states that she does not have any chest pain, but does experience some chest tightness with exertion and cough. No nausea or vomiting. Of note her right arm is more painful , edematous compared to this morning. O: Vitals:93% on 4L NC, HR 90's Gen: Patient resting comfortably sitting upright in chair with nasal cannula in place. CV: Regular rate and rhythm with no murmurs appreciated Resp: Crackles appreciated by basilar lung pittman, no wheezing appreciated, moving air well bilaterally Ext: Right arm is more edematous compared to the left arm, more pronounced compared to exam this morning. Right arm is also warm to the touch, erythematous to the level of the elbow, also more pronounced compared to exam this morning A/P: 81-year-old female with recent cardiac ablation presented to the ED overnight with right arm swelling, pain and erythema found to have cephalic vein thrombus. Now requiring oxygen up to 4 L nasal cannula to maintain oxygen saturations. Also complaining of cough and chest tightness. -Differential including ACS, fluid overload, PE, atelectasis, pneumonia -Troponins have been down trending, EKGs and then benign. Repeating stat troponin, EKG to rule out ACS -Giving one-time dose of Lasix 40 mg IV, crackles appreciated on physical exam -CTA order to rule out PE, we'll assess for pneumonia versus atelectasis as well -Incentive spirometry ordered to prevent any further atelectasis Seen and discussed with Pete Boudreaux Dr., MD R1 Jul 17, 2017 14:50
[2017-07-17] MEDS ORDERED: IOHEXOL 350 MG/ML 10 ML VIAL (for RAD DIAG) IVCONTRAST ONE (15:24)
--- NOTE | 2017-07-17 15:30 | RADRPT ---
EXAM DATE/TIME: 07/17/2017 15:14 [facility] COMPARISON: CHEST PA & LAT, July 17, 2017, 0:01. INDICATIONS : Shortness of breath today. IV CONTRAST: 60 cc Omnipaque 350 (iohexol) IV RADIATION DOSE: 10.81 CTDIvol (mGy) MEDICAL HISTORY : Hypertension. Cardiovascular disease SURGICAL HISTORY : Cholecystectomy. breast implants ENCOUNTER: Initial ACUITY: 1 day PAIN SCALE: 0/10 LOCATION: Bilateral chest TECHNIQUE: Volumetric scanning of the chest was performed using a pulmonary embolism protocol MIP images were re constructed. Using automated exposure control and adjustment of the mA and/or kV according to patien t size, radiation dose was kept as low as reasonably achievable to obtain optimal diagnostic quality images. DICOM format image data is available electronically for review and comparison. Follow-up recommendations for detected pulmonary nodules are based at a minimum on nodule size and pa tient risk factors according to Fleischner Society Guidelines. FINDINGS: There is compression deformity of T12 with slight superior endplate depression not adequately ch aracterized. Moderate bilateral pleural effusions are present with significant bilateral infiltrates diffusely in both lungs worse in lung bases and pneumonia or pulmonary edema should both be entertain ed. in approximate 1.7 cm nodule left thyroid gland is identified. There is no evidence for PE for te chnique. CONCLUSION: 1. Bilateral pleural effusions and parenchymal infiltrates may represent pulmonary edema and/or pneum onia. 2. There is no evidence for PE for technique. 3. Left thyroid nodule. Amber Vallecillo MD on July 17, 2017 at 15:24 Board Certified Radiologist. This report was verified electronically.
[2017-07-17] MEDS ORDERED: BENZONATATE 100 MG CAP PO PRN (17:15)
[2017-07-17] MEDS: VANCOMYCIN 1 GM/200 ML PREMIX IV SCH (18:26)
[2017-07-18] VITALS (25 sets, daily range): BP systolic 116–154; BP diastolic 55–76; PULSE 75–103; RESP 14–18; TEMP 98.1–99; O2SAT 92–96
[2017-07-18] MEDS: IBUPROFEN 600 MG TAB PO SCH ×3 (05:05→21:15)
[2017-07-18 08:07] LABS: AUTOMATED NEUTROPHIL # 9.2 TH/MM3 (1.8-7.7); BASOPHIL % 0.2 % (0.0-2.0); EOSINOPHIL # 0.2 TH/MM3 (0-0.4); EOSINOPHIL % 1.6 % (0.0-4.0); HEMATOCRIT 34.1 % (35.0-46.0); HEMOGLOBIN 11.6 GM/DL (11.6-15.3); LYMPH % 6.4 % (9.0-44.0); LYMPHOCYTE # 0.7 TH/MM3 (1.0-4.8); MEAN CELL VOLUME 92.8 FL (80.0-100.0); MEAN CORPUSCULAR HEMOGLOBIN 31.5 PG (27.0-34.0); MEAN PLATELET VOLUME 9.4 FL (7.0-11.0); MONO % 6.5 % (0.0-8.0); MONOCYTE # 0.7 TH/MM3 (0-0.9); NEUT % 85.3 % (16.0-70.0); PLATELET COUNT 152 TH/MM3 (150-450); RED BLOOD COUNT 3.67 MIL/MM3 (4.00-5.30); RED CELL DISTRIBUTION WIDTH 14.5 % (11.6-17.2); WHITE BLOOD COUNT 10.8 TH/MM3 (4.0-11.0)
[2017-07-18 08:28] LABS: BICARBONATE 26.6 MEQ/L (21.0-32.0); CALCIUM 8.4 MG/DL (8.5-10.1); CREATININE 0.53 MG/DL (0.50-1.00)
[2017-07-18] MEDS ORDERED: FUROSEMIDE 40 MG TAB PO ONE (09:30)
[2017-07-18] MEDS: POLYETHYLENE GLYCOL 17 GM PKG PO SCH (09:54)
[2017-07-18] MEDS: RIVAROXABAN 20 MG TAB PO SCH (09:55)
[2017-07-18] MEDS: FAMOTIDINE 20 MG TAB PO SCH ×2 (09:55→21:15)
[2017-07-18] MEDS: valACYclovir HCL 500 MG TAB PO SCH (09:55)
[2017-07-18] MEDS: DILTIAZEM-CD 180 MG CAP ER PO SCH (09:55)
[2017-07-18] MEDS: AMIODARONE 200 MG TAB PO SCH (09:55)
[2017-07-18] MEDS: THYROID 30 MG TAB PO SCH (09:56)
[2017-07-18] MEDS: DOCUSATE SODIUM 50 MG/SENNA 8.6 MG TAB PO SCH ×2 (09:56→21:15)
[2017-07-18] MEDS: SODIUM CHLORIDE 0.9% FLUSH 10 ML FLUSH IV FLUSH SCH ×2 (09:59→21:14)
[2017-07-18] MEDS: VANCOMYCIN 1 GM/200 ML PREMIX IV SCH (13:25)
--- NOTE | 2017-07-18 14:04 | HHI.FPPN ---
Subjective Remarks Patient evaluated on rounds this morning. No acute events overnight. Patient continued to require 4 L nasal cannula, saturating in the low to mid 90s. She states that she continues to have a dry cough, and have shortness of breath. Denies chest pain, nausea vomiting, diarrhea. Patient had CTA done yesterday that did not show a PE. Received 1 dose of Lasix overnight which seemed to improve her symptoms. (Pete Davenport MD R1) Objective Vitals Vital Signs Date Time Temp Pulse Resp B/P (MAP) Pulse Ox O2 Delivery O2 Flow Rate FiO2 07/18/17 13:00 97 07/18/17 12:00 103 07/18/17 11:00 79 07/18/17 11:00 98.6 98 14 141/74 (96) 96 07/18/17 11:00 96 4.00 07/18/17 10:00 78 07/18/17 09:54 94 Nasal Cannula 3.00 07/18/17 09:00 80 07/18/17 08:00 78 07/18/17 08:00 92 4.00 07/18/17 08:00 99.0 102 16 154/76 (102) 92 07/18/17 07:00 86 07/18/17 06:00 76 07/18/17 05:00 80 07/18/17 04:00 98.1 81 18 116/55 (75) 96 07/18/17 04:00 Nasal Cannula 4.00 07/18/17 04:00 81 07/18/17 03:00 80 07/18/17 02:00 76 07/18/17 01:00 84 07/18/17 00:00 Nasal Cannula 4.00 07/18/17 00:00 98.4 83 18 134/67 (89) 93 07/18/17 00:00 83 07/17/17 23:00 80 07/17/17 22:00 88 07/17/17 21:00 84 07/17/17 20:40 93 Nasal Cannula 3.00 07/17/17 20:00 Nasal Cannula 4.00 07/17/17 20:00 98.6 90 20 145/70 (95) 93 07/17/17 20:00 90 07/17/17 18:00 88 07/17/17 17:00 84 07/17/17 16:00 86 07/17/17 15:00 87 19 147/85 (105) 94 07/17/17 15:00 86 07/17/17 15:00 94 Nasal Cannula 4.00 07/17/17 14:00 90 I/O 07/17/17 07/17/17 07/17/17 07/18/17 07/18/17 07/18/17 07:00 15:00 23:00 07:00 15:00 23:00 Intake Total 740 ml 600 ml 968 ml 720 ml Output Total 500 ml 1500 ml 1000 ml Balance 240 ml 600 ml -532 ml -280 ml Intake Oral 240 ml 968 ml 720 ml IV Total 500 ml 600 ml Output Urine Total 500 ml 1500 ml 1000 ml # Bowel Movements 0 0 (Pete Davenport MD R1) Result Diagram: 07/18/17 0715 07/18/17 0715 Objective Remarks GENERAL: in NAD, no resp distress, nontoxic. Sitting comfortably in bed. Talks in complete sentences. HEENT: NCAT, EOMI, no scleral icterus, no conjunctival injection. MMM. No nasal drainage. NECK: Supple, no meningeal signs. CV: RRR, S1 S2. No murmurs. CHEST/PULM: Good air movement. Crackles at bases, R>L. unchanged from prior exams. ABD/GI: +BS, soft, nondistended EXT: Right forearm with erythema, mild swelling compared to the left arm. Improved from prior exam. Nontender to touch NEURO: Awake, alert. Normal muscle tone. Grossly nonfocal. SKIN: Right forearm as above. No jaundice. PSYCH: Mood and affect are appropriate. Speech fluent. Does not appear to respond to internal stimuli. (Pete Davenport MD R1) A/P Assessment and Plan 81yo lady admitted for R cephalic vein thrombus with possible superimposed cellulitis; now requiring oxygen supplementation to maintain oxygen saturations. CTA on 07/17 negative for PE. Showing signs of fluid overload/ atelectasis. Requiring 4 L nasal cannula on 07/17 and 07/18. Cardiology to see on 07/18 Discharge Planning Patient needs to be cleared by cardiology as well as be off supplemental oxygen prior to discharge. (Pete Davenport MD R1) Attending Attestation Patient seen, examined, and discussed with resident team. I agree with assessment and management as documented and discussed with me. Symptoms somewhat improved after administration of lasix. Provide another dose today and monitor Is/Os. Await recs from cardiology. (Shayy Padilla MD) Problem List: (1) Oxygen desaturation ICD Codes: R09.02 - Hypoxemia Status: Acute Plan: CT on 07/17 negative for PE, showing bilateral pleural effusions and parenchymal infiltrates Patient continues to require 4 L nasal cannula - saturation in the low to mid 90s Echocardiogram ordered today ACS rule out negative, troponins trending down. No leukocytosis, afebrile. Low suspicion for pneumonia Likely etiology atelectasis with fluid overload Symptoms improved with one-time dose of Lasix 40 mg IV on 07/17 Getting another dose of Lasix 40 mg by mouth once on 07/18 Incentive spirometer. Provide O2 sats as needed to maintain sats >88% Consider ABG if clinically worsening. (2) Chest pressure ICD Codes: R07.89 - Other chest pain Status: Acute Plan: See management as above. Troponins initially elevated at admission, but continued to downtrend. Appreciate cardiology; pt was made nothing by mouth at midnight for possible stress test today. (3) Cellulitis ICD Codes: L03.90 - Cellulitis, unspecified Status: Acute Plan: Right arm erythema, edema present but improved from prior exams -Continuing Vancomycin 1g IV q12h 07/16/17 --> -Pharmacy Vanc consult -Discontinued fluids -Ibuprofen 600mg q8h for pain -Morphine 2mg IV q3h breakthrough pain -Warm compresses. (4) Superficial thrombophlebitis ICD Codes: I80.9 - Phlebitis and thrombophlebitis of unspecified site Status: Acute Plan: Thrombus of R cephalic vein seen on US at admission. Pt taking Xarelto - will continue. CTA negative for PE Continue warm compresses Swelling/erythema improved on physical exam today (5) Status post ablation of atrial fibrillation ICD Codes: Z98.890 - Other specified postprocedural states; Z86.79 - Personal history of other diseases of the circulatory system Status: Acute Plan: Appreciate cardiology. Continue amiodarone, xarelto, cardizem. Currently in sinus rhythm. (6) Hypothyroidism ICD Codes: E03.9 - Hypothyroidism, unspecified Status: Chronic Plan: Continue home thyroid medication. Pt follows with Dr. Barraza as an outpatient. She has recently been placed on amiodarone, and has normal Thyroid function tests during the last admission (7) Hypertension ICD Codes: I10 - Essential (primary) hypertension Status: Chronic Plan: Continue home medication. Continue to monitor. (8) FEN/PPX Status: Chronic Plan: No IV fluids at this time Nothing by mouth for possible cardiac stress test on 07/18 Will resume cardiac diet after procedure Continuing Xarelto DVT prophylaxis (Pete Davenport MD R1) Problem Qualifiers (1) Cellulitis: Qualified Codes: L03.113 - Cellulitis of right upper limb (2) Superficial thrombophlebitis: Qualified Codes: I80.8 - Phlebitis and thrombophlebitis of other sites (3) Hypothyroidism: Qualified Codes: E03.9 - Hypothyroidism, unspecified (4) Hypertension: Qualified Codes: I10 - Essential (primary) hypertension Pete Davenport MD R1 Jul 18, 2017 14:04 Shayy Padilla MD Jul 18, 2017 16:43
[2017-07-18] MEDS ORDERED: FUROSEMIDE 40 MG/4 ML VIAL IV PUSH ONE (17:45)
[2017-07-18] MEDS ORDERED: POTASSIUM CHLORIDE 20 MEQ CONTROLLED RELEASE TAB PO ONE (17:45)
--- NOTE | 2017-07-18 23:03 | EKG ---
Date Performed: 07/17/2017 Time Performed: 14:37:02 PTAGE: 81 years EKG: Sinus rhythm No significant ST and T waves changes PREVIOUS TRACING : 07/17/2017 12.57 DOCTOR: Serge Engle Interpretating Date/Time 07/18/2017 23:02:13
--- NOTE | 2017-07-18 23:06 | EKG ---
Date Performed: 07/17/2017 Time Performed: 12:57:33 PTAGE: 81 years EKG: Sinus rhythm NORMAL ECG PREVIOUS TRACING : 07/17/2017 02.19 DOCTOR: Serge Engle Interpretating Date/Time 07/18/2017 23:03:45
[2017-07-18] MEDS: TEMAZEPAM 15 MG CAP PO PRN (23:24)
[2017-07-19] VITALS (16 sets, daily range): BP systolic 130–154; BP diastolic 69–77; PULSE 69–89; RESP 18; TEMP 97.3–98.7; O2SAT 93–96
[2017-07-19] MEDS ORDERED: PHARMACY ORDERED LAB ONE (05:45)
[2017-07-19] MEDS: VANCOMYCIN 1 GM/200 ML PREMIX IV SCH (06:14)
[2017-07-19] MEDS: IBUPROFEN 600 MG TAB PO SCH ×2 (06:14→08:57)
[2017-07-19 06:37] LABS: AUTOMATED NEUTROPHIL # 5.8 TH/MM3 (1.8-7.7); BASOPHIL # 0.1 TH/MM3 (0-0.2); BASOPHIL % 0.7 % (0.0-2.0); EOSINOPHIL # 0.3 TH/MM3 (0-0.4); EOSINOPHIL % 3.3 % (0.0-4.0); HEMATOCRIT 30.4 % (35.0-46.0); HEMOGLOBIN 10.4 GM/DL (11.6-15.3); LYMPH % 14.8 % (9.0-44.0); LYMPHOCYTE # 1.2 TH/MM3 (1.0-4.8); MEAN CELL VOLUME 92.2 FL (80.0-100.0); MEAN CORPUSCULAR HEMOGLOBIN 31.5 PG (27.0-34.0); MEAN CORPUSCULAR HGB CONC 34.2 % (32.0-36.0); MEAN PLATELET VOLUME 9.8 FL (7.0-11.0); MONO % 7.3 % (0.0-8.0); MONOCYTE # 0.6 TH/MM3 (0-0.9); NEUT % 73.9 % (16.0-70.0); PLATELET COUNT 155 TH/MM3 (150-450); RED BLOOD COUNT 3.29 MIL/MM3 (4.00-5.30); RED CELL DISTRIBUTION WIDTH 13.9 % (11.6-17.2); WHITE BLOOD COUNT 7.8 TH/MM3 (4.0-11.0)
[2017-07-19 07:05] LABS: BICARBONATE 29.4 MEQ/L (21.0-32.0); CALCIUM 8.2 MG/DL (8.5-10.1); CREATININE 0.62 MG/DL (0.50-1.00)
[2017-07-19 07:06] LABS: VANCOMYCIN TROUGH 7.8 MCG/ML (5.0-10.0)
[2017-07-19] MEDS: SODIUM CHLORIDE 0.9% FLUSH 10 ML FLUSH IV FLUSH SCH (09:16)
[2017-07-19] MEDS: THYROID 30 MG TAB PO SCH (09:17)
[2017-07-19] MEDS: DILTIAZEM-CD 180 MG CAP ER PO SCH (09:17)
[2017-07-19] MEDS: POLYETHYLENE GLYCOL 17 GM PKG PO SCH (09:17)
[2017-07-19] MEDS: RIVAROXABAN 20 MG TAB PO SCH (09:17)
[2017-07-19] MEDS: AMIODARONE 200 MG TAB PO SCH (09:17)
[2017-07-19] MEDS: valACYclovir HCL 500 MG TAB PO SCH (09:17)
[2017-07-19] MEDS: DOCUSATE SODIUM 50 MG/SENNA 8.6 MG TAB PO SCH (09:17)
[2017-07-19] MEDS: FAMOTIDINE 20 MG TAB PO SCH (09:17)
--- NOTE | 2017-07-19 13:50 | HHI.FPPN ---
Subjective Remarks No acute events overnight. Vital signs remained stable. Patient continued to require 3 L nasal cannula overnight, but was maintaining saturations in the mid 90s on room air and early afternoon of 07/19. Patient reports improvement in shortness of breath. Denies chest pain, nausea or vomiting. Patient had been complaining of constipation but had a large bowel movement today as well. (Pete Davenport MD R1) Objective Vitals Vital Signs Date Time Temp Pulse Resp B/P (MAP) Pulse Ox O2 Delivery O2 Flow Rate FiO2 07/19/17 13:00 85 07/19/17 12:00 78 07/19/17 11:00 Nasal Cannula 3.00 07/19/17 11:00 97.3 78 18 154/74 (100) 96 07/19/17 11:00 89 07/19/17 10:00 69 07/19/17 10:00 18 07/19/17 09:00 77 07/19/17 08:46 94 Nasal Cannula 3.00 07/19/17 08:00 82 07/19/17 07:00 77 07/19/17 07:00 4.00 07/19/17 07:00 76 07/19/17 07:00 97.4 80 18 137/77 (97) 93 07/19/17 06:00 74 07/19/17 05:00 73 07/19/17 04:00 72 07/19/17 03:00 83 07/19/17 03:00 93 3.00 07/19/17 03:00 98.7 75 18 130/69 (89) 93 07/19/17 02:00 74 07/19/17 01:00 72 07/19/17 00:00 71 07/18/17 23:00 98.2 75 18 130/67 (88) 94 07/18/17 23:00 94 3.00 07/18/17 23:00 75 07/18/17 22:00 80 07/18/17 21:00 88 07/18/17 20:00 98.5 76 16 117/60 (79) 96 07/18/17 20:00 96 3.00 07/18/17 20:00 88 07/18/17 19:00 86 07/18/17 18:00 80 07/18/17 17:00 78 07/18/17 16:00 94 07/18/17 15:00 92 16 145/69 (94) 95 07/18/17 15:00 96 07/18/17 15:00 95 3.00 07/18/17 14:00 97 I/O 07/18/17 07/18/17 07/18/17 07/19/17 07/19/17 07/19/17 07:00 15:00 23:00 07:00 15:00 23:00 Intake Total 720 ml 1200 ml 630 ml Output Total 1000 ml 500 ml 1200 ml Balance -280 ml 700 ml -570 ml Intake Oral 720 ml 1200 ml 630 ml Output Urine Total 1000 ml 500 ml 1200 ml # Voids 5 # Bowel Movements 0 0 1 (Pete Davenport MD R1) Result Diagram: 07/19/174 07/19/174 Objective Remarks GENERAL: in NAD, no resp distress, nontoxic. Sitting comfortably in chair. Talks in complete sentences. HEENT: NCAT, EOMI, no scleral icterus, no conjunctival injection. MMM. No nasal drainage. NECK: Supple, no meningeal signs. CV: RRR, S1 S2. No murmurs. CHEST/PULM: Good air movement. Faint crackles appreciated in the right lung base , significantly improved from prior exams. ABD/GI: +BS, soft, nondistended EXT: Right forearm with mild swelling compared to the left arm. Improved from prior exam. Nontender to touch NEURO: Awake, alert. Normal muscle tone. Grossly nonfocal. SKIN: Right forearm as above. No jaundice. PSYCH: Mood and affect are appropriate. Speech fluent. Does not appear to respond to internal stimuli. (Pete Davenport MD R1) A/P Assessment and Plan 81yo lady admitted for R cephalic vein thrombus with possible superimposed cellulitis; now requiring oxygen supplementation to maintain oxygen saturations. CTA on 07/17 negative for PE. Showing signs of fluid overload/ atelectasis. Requiring 4 L nasal cannula on 07/17 and 07/18. Required 3 L nasal cannula overnight but is maintaining saturations in the mid 90s on room air on . Cardiology will not pursue stress test. Discharge Planning Patient needs to be cleared by cardiology as well as be off supplemental oxygen prior to discharge. (Pete Davenport MD R1) Attending Attestation Patient seen and examined, discussed with resident team. I agree with assessment and management as documented and discussed with me. Pt reports breathing is improved. Daughter at bedside. Wean O2 today. Possible discharge if able to maintain sats on room air. (Shayy Padilla MD) Problem List: (1) Oxygen desaturation ICD Codes: R09.02 - Hypoxemia Status: Acute Plan: CT on 07/17 negative for PE, showing bilateral pleural effusions and parenchymal infiltrates Patient able to wean off oxygen on 07/19, maintaining saturations in the mid 90s on room air, shortness of breath improving Echocardiogram ordered, but had echo done and most recent hospitalization on which showed normal ejection fraction and benign findings. ACS rule out negative No leukocytosis, afebrile. Low suspicion for pneumonia Likely etiology atelectasis with fluid overload Symptoms improved with one-time dose of several doses of Lasix, will discharge on by mouth Lasix for her next several days Incentive spirometer. Provide O2 sats as needed to maintain sats >88% (2) Chest pressure ICD Codes: R07.89 - Other chest pain Status: Acute Plan: See management as above. Troponins initially elevated at admission, but continued to downtrend. Appreciate cardiology; no need for cardiac stress test at this time. Will follow -up as outpatient (3) Cellulitis ICD Codes: L03.90 - Cellulitis, unspecified Status: Acute Plan: Right arm erythema, edema present but significantly improved from prior exams -Continuing Vancomycin 1g IV q12h 07/16/17 --> -Pharmacy Vanc consult -Ibuprofen 600mg q8h for pain -Morphine 2mg IV q3h breakthrough pain -Warm compresses -Patient is been afebrile and had no leukocytosis, redness and swelling did improve on IV antibiotics -Will discharge on Bactrim for total of 7 day course of antibiotics (4) Superficial thrombophlebitis ICD Codes: I80.9 - Phlebitis and thrombophlebitis of unspecified site Status: Acute Plan: Thrombus of R cephalic vein seen on US at admission. Pt taking Xarelto - will continue. CTA negative for PE Continue warm compresses Swelling/erythema improved on physical exam today (5) Status post ablation of atrial fibrillation ICD Codes: Z98.890 - Other specified postprocedural states; Z86.79 - Personal history of other diseases of the circulatory system Status: Acute Plan: Appreciate cardiology. Continue amiodarone, xarelto, cardizem. Currently in sinus rhythm. (6) Hypothyroidism ICD Codes: E03.9 - Hypothyroidism, unspecified Status: Chronic Plan: Continue home thyroid medication. Pt follows with Dr. Barraza as an outpatient. She has recently been placed on amiodarone, and has normal Thyroid function tests during the last admission (7) Hypertension ICD Codes: I10 - Essential (primary) hypertension Status: Chronic Plan: Continue home medication. Continue to monitor. (8) FEN/PPX Status: Chronic Plan: No IV fluids at this time Cardiac diet Continuing Xarelto DVT prophylaxis (Pete Davenport MD R1) Problem Qualifiers (1) Cellulitis: Qualified Codes: L03.113 - Cellulitis of right upper limb (2) Superficial thrombophlebitis: Qualified Codes: I80.8 - Phlebitis and thrombophlebitis of other sites (3) Hypothyroidism: Qualified Codes: E03.9 - Hypothyroidism, unspecified (4) Hypertension: Qualified Codes: I10 - Essential (primary) hypertension Pete Davenport MD R1 Jul 19, 2017 13:50 Shayy Padilla MD Jul 20, 2017 16:56
[2017-07-19] MEDS ORDERED: BENZ100 PO (14:16)
[2017-07-19] MEDS ORDERED: BACT400T PO (14:16)
[2017-07-19] MEDS ORDERED: POTA20TA5 PO (14:16)
[2017-07-19] MEDS ORDERED: FURO1TAB60 PO (14:16)
--- NOTE | 2017-07-19 15:14 | HHI.DCPOC ---
Discharge Care Plan Diagnosis: (1) Hypokalemia (2) Chest pressure (3) Oxygen desaturation (4) Superficial thrombophlebitis Goals to Promote Your Health * To prevent worsening of your condition and complications * To maintain your health at the optimal level Directions to Meet Your Goals Take your medications as prescribed Follow your dietary instruction Follow activity as directed Please have PFT's done as ordered at last discharge to follow up lung function following initiation of amiodarone therapy Keep your appointments as scheduled Take your immunizations and boosters as scheduled If your symptoms worsen call your PCP, if no PCP go to Urgent Care Center or Emergency Room Smoking is Dangerous to Your Health. Avoid second hand smoke Call the 24-hour hour crisis hotline for domestic abuse at Pete Davenport MD R1 Jul 19, 2017 15:14
--- NOTE | 2017-07-19 15:34 | HHI.DS ---
Discharge Summary Admission Date Jul 19, 2017 at 10:55 Discharge Date: Jul 19, 2017 Admitting Diagnosis cellulitis right arm; superficial thrombophlebitis right arm (1) Oxygen desaturation ICD Codes: R09.02 - Hypoxemia Status: Acute (2) Cellulitis Plan: Right arm erythema, edema present but significantly improved from prior exams -Continuing Vancomycin 1g IV q12h 07/16/17 --> -Pharmacy Vanc consult -Ibuprofen 600mg q8h for pain -Morphine 2mg IV q3h breakthrough pain -Warm compresses -Patient is been afebrile and had no leukocytosis, redness and swelling did improve on IV antibiotics -Will discharge on Bactrim for total of 7 day course of antibiotics ICD Codes: L03.90 - Cellulitis, unspecified Status: Acute (3) Superficial thrombophlebitis ICD Codes: I80.9 - Phlebitis and thrombophlebitis of unspecified site Status: Acute (4) Status post ablation of atrial fibrillation ICD Codes: Z98.890 - Other specified postprocedural states; Z86.79 - Personal history of other diseases of the circulatory system Status: Acute Brief History Ms Pierre is an 81YO female w/PMHx of HTN, thyroid disease, prediabetes and chronic Afib discharged today s/p cardiac ablation for AFib RVR/SVT who presents with pain, swelling and erythema of right arm that began after arriving home today. Pain and swelling began about 3 hours after getting home. She had an IV in her right arm for 3 days during hospitalization. Pt tried ice pack at home and it didn't relieve pain or swelling. Pain is described as 5/10 on pain scale without touching it; but 8/10 to the touch. Pain is achy and has progressively moved up the right arm since first onset today. Fingers of right hand are a little tingly when rubbing fingers together, but there is no loss of ROM due to swelling. Inciting lesion appears to be at site of IV on medial aspect just proximal to the right wrist. Pt denies CP, SOB, N/V/D, DVT pain in legs, fevers or chills. CBC/BMP: 07/19/17 0454 07/19/17 0454 Significant Findings Laboratory Tests Test 07/16/17 21:00 07/16/17 21:15 07/17/17 01:09 07/17/17 03:39 Red Blood Count 3.79 MIL/MM3 (4.00-5.30) 3.47 MIL/MM3 (4.00-5.30) Neutrophils (%) (Auto) 79.2 % (16.0-70.0) 84.5 % (16.0-70.0) Neutrophils # (Auto) 8.5 TH/MM3 (1.8-7.7) 8.7 TH/MM3 (1.8-7.7) Prothrombin Time 12.3 SEC (9.8-11.6) Aspartate Amino Transf (AST/SGOT) 43 U/L (15-37) Sodium Level 134 MEQ/L (136-145) 135 MEQ/L (136-145) Potassium Level 3.3 MEQ/L (3.5-5.1) Estimat Glomerular Filtration Rate 61 ML/MIN (>89) 82 ML/MIN (>89) Troponin I 1.95 NG/ML (0.02-0.05) 1.22 NG/ML (0.02-0.05) Hemoglobin 10.9 GM/DL (11.6-15.3) Hematocrit 32.3 % (35.0-46.0) Random Glucose 112 MG/DL (74-106) Calcium Level 8.2 MG/DL (8.5-10.1) Creatine Kinase MB 3.8 NG/ML (0.5-3.6) Test 07/17/17 09:35 07/17/17 15:50 07/18/17 07:15 07/19/17 04:54 Troponin I 0.90 NG/ML (0.02-0.05) 0.73 NG/ML (0.02-0.05) Red Blood Count 3.67 MIL/MM3 (4.00-5.30) 3.29 MIL/MM3 (4.00-5.30) Hematocrit 34.1 % (35.0-46.0) 30.4 % (35.0-46.0) Neutrophils (%) (Auto) 85.3 % (16.0-70.0) 73.9 % (16.0-70.0) Lymphocytes (%) (Auto) 6.4 % (9.0-44.0) Neutrophils # (Auto) 9.2 TH/MM3 (1.8-7.7) Lymphocytes # (Auto) 0.7 TH/MM3 (1.0-4.8) Calcium Level 8.4 MG/DL (8.5-10.1) 8.2 MG/DL (8.5-10.1) Hemoglobin 10.4 GM/DL (11.6-15.3) Potassium Level 3.2 MEQ/L (3.5-5.1) PE at Discharge GENERAL: in NAD, no resp distress, nontoxic. Sitting comfortably in chair. Talks in complete sentences. HEENT: NCAT, EOMI, no scleral icterus, no conjunctival injection. MMM. No nasal drainage. NECK: Supple, no meningeal signs. CV: RRR, S1 S2. No murmurs. CHEST/PULM: Good air movement. Faint crackles appreciated in the right lung base , significantly improved from prior exams. ABD/GI: +BS, soft, nondistended EXT: Right forearm with mild swelling compared to the left arm. Improved from prior exam. Nontender to touch NEURO: Awake, alert. Normal muscle tone. Grossly nonfocal. SKIN: Right forearm as above. No jaundice. PSYCH: Mood and affect are appropriate. Speech fluent. Does not appear to respond to internal stimuli. Hospital Course Patient presented on 07/16, the same day as discharge after and atrial ablation, with right arm swelling or redness and pain. Ultrasound in the ED showed a superficial cephalic vein thrombosis in the right arm. Troponins were elevated on admission at.1.95. This was discussed with cardiology, and it was determined to be likely secondary to the recent ablation. Patient was denying chest pain at that time. Troponins down trended over the following hours, and EKGs were normal. Patient continued to be in sinus rhythm. Patient was started on vancomycin as was a possibility of a secondary infection in the right arm. Swelling/pain improved with antibiotics and warm compressions. The patient did complain of shortness of breath and a cough. She was also requiring supplemental oxygen at 4 L nasal cannula. CTA was ordered on 07/17 to rule out PE , and it showed bilateral pleural effusions and parenchymal infiltrates. Patient continued to be afebrile and had no leukocytosis, so pneumonia was less suspected. Patient was diuresed with IV Lasix and over the coming days she symptomatically improved and was able to wean off oxygen on 2/6. Cardiology determined no stress test or further workup was warranted at this time and would follow-up as an outpatient. Patient was continued on her Xarelto, and was discharged on Bactrim for a total of 7 days of antibiotics. She was also discharged on by mouth Lasix and potassium for a 5 day course. It was determined patient was safe for discharge on 07/19 with a follow-up with PCP and cardiology. Pt Condition on Discharge: Good Discharge Disposition: Discharge Home Discharge Instructions DIET: Follow Instructions for: Heart Healthy Diet Activities you can perform: Regular-No Restrictions Follow up Referrals: Cardiology - 1 Week with Serge Engle MD PCP Follow-up - 2 Weeks New Orders: BASIC METABOLIC PROF - 2-3 Days New Medications: Furosemide (Lasix) 40 Mg Tab 40 MG PO DAILY, #5 TAB 0 Refills Potassium Chloride Microencaps (Potassium Chloride Microencaps) 20 Meq Tab 20 MEQ PO DAILY for Electrolyte Replacement, #5 TAB 0 Refills Sulfamethoxazole-Trimethoprim (Bactrim) 400-80 Mg Tab 1 TAB PO BID for Infection, #6 TAB 0 Refills Benzonatate (Tessalon Perles) 100 Mg Cap 100 MG PO TID PRN for COUGH, #90 CAP Continued Medications: Amiodarone (Amiodarone) 200 Mg Tab 200 MG PO DAILY, #30 TAB Diltiazem CD 24 HR (Diltiazem CD 24 HR) 180 Mg Caper 180 MG PO DAILY, #30 CAP 0 Refills Rivaroxaban (Xarelto) 20 Mg Tab 20 MG PO DAILY for Blood Clot Prevention, TAB 0 Refills Thyroid (Rombauer Thyroid) 30 Mg Tab 45 MG PO DAILY for Thyroid Supplement, #30 TAB 0 Refills Valacyclovir (Valtrex) 1 Gm Tab 1000 MG PO DAILY for Mgmt Viral Infection, #30 TAB 0 Refills Pete Davenport MD R1 Jul 19, 2017 15:34
--- NOTE | 2017-07-19 16:12 | HHI.PR ---
Subjective Remarks Feeling better Objective Vital Signs Date Time Temp Pulse Resp B/P (MAP) Pulse Ox O2 Delivery O2 Flow Rate FiO2 07/19/17 14:00 79 07/19/17 13:43 96 Room Air 07/19/17 13:00 85 07/19/17 12:00 78 07/19/17 11:00 Nasal Cannula 3.00 07/19/17 11:00 97.3 78 18 154/74 (100) 96 07/19/17 11:00 89 07/19/17 10:00 69 07/19/17 10:00 18 07/19/17 09:00 77 07/19/17 08:46 94 Nasal Cannula 3.00 07/19/17 08:00 82 07/19/17 07:00 77 07/19/17 07:00 4.00 07/19/17 07:00 76 07/19/17 07:00 97.4 80 18 137/77 (97) 93 07/19/17 06:00 74 07/19/17 05:00 73 07/19/17 04:00 72 07/19/17 03:00 83 07/19/17 03:00 93 3.00 07/19/17 03:00 98.7 75 18 130/69 (89) 93 07/19/17 02:00 74 07/19/17 01:00 72 07/19/17 00:00 71 07/18/17 23:00 98.2 75 18 130/67 (88) 94 07/18/17 23:00 94 3.00 07/18/17 23:00 75 07/18/17 22:00 80 07/18/17 21:00 88 07/18/17 20:00 98.5 76 16 117/60 (79) 96 07/18/17 20:00 96 3.00 07/18/17 20:00 88 07/18/17 19:00 86 07/18/17 18:00 80 07/18/17 17:00 78 I/O 07/18/17 07/18/17 07/18/17 07/19/17 07/19/17 07/19/17 07:00 15:00 23:00 07:00 15:00 23:00 Intake Total 720 ml 1200 ml 630 ml Output Total 1000 ml 500 ml 1200 ml Balance -280 ml 700 ml -570 ml Intake Oral 720 ml 1200 ml 630 ml Output Urine Total 1000 ml 500 ml 1200 ml # Voids 5 # Bowel Movements 0 0 1 Result Diagram: 07/19/17 0454 07/19/17 0454 Imaging Alert, fully oriented Lungs: ventilated Heart: S1, S2 regular. no gallop, no rub Abdomen: soft, no mass Ext: no edema Last Impressions CT Angiography 07/17/17 0000 Signed Impressions: Service Date/Time: Monday, July 17, 2017 15:14 - CONCLUSION: 1. Bilateral pleural effusions and parenchymal infiltrates may represent pulmonary edema and/or pneumonia. 2. There is no evidence for PE for technique. 3. Left thyroid nodule. Amber Vallecillo MD Upper Extremity Ultrasound 07/16/17 0000 Signed Impressions: Service Date/Time: Sunday, July 16, 2017 21:17 - CONCLUSION: There is thrombus within the cephalic vein. Amber Vallecillo MD Chest X-Ray 07/16/17 0000 Signed Impressions: Service Date/Time: Monday, July 17, 2017 00:01 - CONCLUSION: Mild diffuse interstitial prominence is noted suggesting mild interstitial edema. Demarco Gallo MD Current Medications Medications (Trade) Dose Ordered Sig/Ambar Route Start Time Stop Time Status Last Admin (NS Flush) 2 ml BID IV FLUSH 07/17/17 09:00 07/19/17 09:16 (NS Flush) 2 ml UNSCH PRN IV FLUSH 07/16/17 23:15 (Cordarone) 200 mg DAILY PO 07/17/17 09:00 07/19/17 09:17 (Cardizem Cd) 180 mg DAILY PO 07/17/17 09:00 07/19/17 09:17 (Xarelto) 20 mg DAILY PO 07/17/17 09:00 07/19/17 09:17 (Luckey Thyroid) 45 mg DAILY PO 07/17/17 09:00 07/19/17 09:17 (Valtrex) 1,000 mg DAILY PO 07/17/17 09:00 07/19/17 09:17 (Motrin) 600 mg Q8HR PO 07/16/17 23:15 07/19/17 08:57 (Morphine Inj) 2 mg Q3H PRN IV PUSH 07/16/17 23:15 (Vasotec Inj) 1.25 mg Q6H PRN IV PUSH 07/16/17 23:15 (Miralax) 17 gm DAILY PO 07/17/17 09:00 07/19/17 09:17 (Laura-Colace) 1 tab BID PO 07/17/17 09:00 07/19/17 09:17 (Restoril) 15 mg HS PRN PO 07/17/17 01:15 07/18/17 23:24 (Pepcid) 20 mg BID PO 07/17/17 09:00 07/19/17 09:17 (Nitrostat Sl) 0.4 mg Q5M PRN SL 07/17/17 01:15 Pharmacy Profile Note 0 ml @ 0 mls/hr UNSCH OTHER 07/17/17 14:45 (Tessalon) 100 mg TID PRN PO 07/17/17 17:15 Vancomycin HCl 1250 mg/Sodium Chloride 262.5 ml @ 250 mls/hr Q18H IV 07/20/17 00:00 Miscellaneous Information SPECIFIC LAB TO BE DRAWN:VANCOMYCIN TROUGH DATE TO... ONCE ONCE .XX 07/22/17 05:45 07/22/17 05:46 Assessment and Plan Problem List: (1) Cellulitis ICD Codes: L03.90 - Cellulitis, unspecified Status: Acute Plan: Doing better, on antibiotic (2) Atrial tachycardia ICD Codes: I47.1 - Supraventricular tachycardia Plan: In sinsu rhythm Meds discussed with patient and family Can be DH when ok with the managing team I will be available on a PRN basis Problem Qualifiers (1) Cellulitis: Qualified Codes: L03.113 - Cellulitis of right upper limb Serge Engle MD Jul 19, 2017 16:12
[2017-07-20] MEDS ORDERED: VANCOMYCIN INJ 1,250 MG in SODIUM CHLOR 0.9% 250 ML INJ 250 ML IV SCH ×2
[2017-07-22] MEDS ORDERED: PHARMACY ORDERED LAB ONE (05:45)
--- NOTE | 2017-07-22 08:20 | PQ ---
Physician Query Response Document PATIENT: AME NUNEZ : 1935 ADMIT DATE: 07/19/2017 10:55 AM DISCH DATE: 07/19/2017 4:48 PM RESPONDING PROVIDER #: Yosvany QUERY TEXT: Clarification of Clinical Diagnostic Findings Please clarify documentation or clinical relevance for the clinical / diagnostic findings or whether those are insignificant or unable to be further specified. WAS PATIENT'S RIGHT ARM THROMBOPHLEBITIS : 1)unknown etiology 2)due to previous IV in arm 3)other(PLEASE SPECIFY) The patient's Clinical Indicators include: Dr. Padilla, patient was admitted with thrombophlebitis of right arm. it is noted that patient had an IV in right arm from previous admission. PLEASE REVIEW THE QUESTION BELOW AND ANSWER TO THE BEST OF YOUR ABILITY THANK YOU Query created by: Fritz Reyes on 07/22/2017 6:46 AM RESPONSE TEXT: Documentation clarification: It is possible that cellulitis in R arm is secondary to R peripheral IV from prior admission. Electronically signed by: Shayy Padilla MD 07/22/2017 8:17 AM
== END 2017-07-19 16:48 | disposition home or self-care (01) | DRG 315 ==
LOC: NEPE 20:39 → NEDA 22:29 → HCIS 07-17 00:48 → OBSVTOIN 07-19 10:55
PROVIDERS: ADMIT Family Medicine; ATTEND Family Medicine
DX: T80.1XXA Vascular complications following infusion, transfusion and therapeutic injection, initial encounter (principal); L03.113 Cellulitis of right upper limb; I80.8 Phlebitis and thrombophlebitis of other sites; E11.9 Type 2 diabetes mellitus without complications; I48.2 Chronic atrial fibrillation; E87.1 Hypo-osmolality and hyponatremia; I10 Essential (primary) hypertension; E03.9 Hypothyroidism, unspecified; E87.6 Hypokalemia; Y82.8 Other medical devices associated with adverse incidents; K59.00 Constipation, unspecified; R42 Dizziness and giddiness; R09.02 Hypoxemia; Z86.79 Personal history of other diseases of the circulatory system; Z98.82 Breast implant status
CPT/HCPCS: 71046; 71275; 80048; 80053; 80202; 82550; 82552; 83605; 83690; 83735; 83880; 84484; 85002; 85025; 85610; 85730; 87040; 87804; 93005; 93613; 93623; 93656; 93662; 93971; 94150; C1730; C1731; C1732; C1759; C1766; C2630; G8987-GP; G8988-GP; J1940; J2270; J2405; J3370; J7030; J7050; Q9967